=== PATIENT | female | born 1970 | race Two or more races ===

== ENCOUNTER → 2020-03-09 10:15 | Outpatient (REF) | payer OTHER, SELFPAY ==
--- NOTE | 2020-03-09 10:31 | ECG_ITS ---
Test Reason : I20.8 Blood Pressure : / mmHG Vent. Rate : 078 BPM Atrial Rate : 078 BPM P-R Int : 164 ms QRS Dur : 074 ms QT Int : 352 ms P-R-T Axes : 065 047 028 degrees QTc Int : 401 ms Normal sinus rhythm Normal ECG When compared with ECG of 12-APR-2019 17:12, No significant change was found Referred By: Alethea Kebede Electronically Signed By:MANUELITO SO
--- NOTE | 2020-03-09 10:46 | XR_ITS ---
EXAMINATION: CHEST X-RAY CLINICAL INFORMATION: Angina COMPARISON: Previous chest x-ray and chest CTA April 2009 TECHNIQUE: Two-view chest FINDINGS: The cardiac and mediastinal contours are normal. The lungs are clear. There is no pleural effusion or pneumothorax bony structures are unremarkable. XR/XR chest 2V IMPRESSION: Unremarkable exam EXAMINATION: Cervical spine x-ray CLINICAL INFORMATION: Neck pain COMPARISON: None. TECHNIQUE: 6 views of the cervical spine including swimmer's view and bilateral oblique views FINDINGS: Bone alignment is normal. No fracture or dislocation is seen. There is degenerative spondylosis at C4-C5. Disc spaces are normal. Neural foramen are patent. Prevertebral soft tissues are normal. IMPRESSION: Mild degenerative spondylosis at C4-C5.
--- NOTE | 2020-03-09 10:47 | XR_ITS ---
EXAMINATION: CHEST X-RAY CLINICAL INFORMATION: Angina COMPARISON: Previous chest x-ray and chest CTA April 2009 TECHNIQUE: Two-view chest FINDINGS: The cardiac and mediastinal contours are normal. The lungs are clear. There is no pleural effusion or pneumothorax bony structures are unremarkable. XR/XR cervical spine min 6V IMPRESSION: Unremarkable exam EXAMINATION: Cervical spine x-ray CLINICAL INFORMATION: Neck pain COMPARISON: None. TECHNIQUE: 6 views of the cervical spine including swimmer's view and bilateral oblique views FINDINGS: Bone alignment is normal. No fracture or dislocation is seen. There is degenerative spondylosis at C4-C5. Disc spaces are normal. Neural foramen are patent. Prevertebral soft tissues are normal. IMPRESSION: Mild degenerative spondylosis at C4-C5.
== END ==
LOC: HO.CARD 10:15
PROVIDERS: PCP Internal Medicine; Visit Provider Internal Medicine
DX: I20.8 Other forms of angina pectoris (principal); M54.2 Cervicalgia
CPT/HCPCS: 71046; 72052; 93005

== ENCOUNTER 2020-03-23 07:22 | Outpatient (REF) | payer OTHER, SELFPAY ==
[2020-03-23 08:19] LABS: Alanine Aminotransferase 20 U/L (0-31); Albumin Level 3.8 g/dL (3.5-5.0); Alkaline Phosphatase 73 U/L (39-117); Anion Gap 11 (12-20); Aspartate Amino Transferase 19 U/L (5-31); Bilirubin Total 0.4 mg/dL (0.0-1.0); Blood Urea Nitrogen 12 mg/dL (9-16); Calcium 8.8 mg/dL (8.4-10.2); Carbon Dioxide 25 mmol/L (22-29); Chloride 105 mmol/L (96-108); Cholesterol 146 mg/dL; Estimated Glomerular Filt Rate > 60; Glucose Fasting 96 mg/dL (60-99); HDL Cholesterol 43 mg/dL; LDL Cholesterol Calculated 89 mg/dl; Potassium 4.1 mmol/l (3.3-5.1); Sodium 137 mmol/L (135-145); Total Protein 7.2 g/dL (6.5-8.0); Triglycerides 71 mg/dL
== END 2020-03-23 07:23 | disposition home or self-care (01) ==
LOC: HO.LAB 07:22
PROVIDERS: Visit Provider Internal Medicine
DX: I10 Essential (primary) hypertension (principal)
CPT/HCPCS: 80053; 80061

== ENCOUNTER 2020-04-10 17:48 | Emergency (ER) | payer OTHER, SELFPAY ==
[2020-04-10 18:13] VITALS: BP 135/68; PULSE 59; RESP 18; TEMP 36.8; O2SAT 99; BMI 29.2
== END 2020-04-10 19:40 | disposition left against medical advice (07) ==
PROVIDERS: Emergency Provider Emergency Medicine; PCP Internal Medicine
DX: M25.569 Pain in unspecified knee (principal)
CPT/HCPCS: 99281; 99282

== ENCOUNTER 2020-05-25 08:26 | Outpatient (REF) | payer OTHER, SELFPAY ==
--- NOTE | ~2020-05-25 | XR_ITS ---
EXAMINATION: XR KNEE, LEFT CLINICAL INFORMATION: Pain COMPARISON: None TECHNIQUE: Four views of the left knee. FINDINGS: Bone alignment is normal. No fracture or dislocation is seen. Joint spaces are normal. There is a small osteophyte at the quadriceps tendon insertion to the patella. There is no joint effusion. XR/XR knee LT 4V IMPRESSION: Small patellar osteophyte otherwise unremarkable exam.
[2020-05-25 09:20] LABS: Basophils Percent Auto 0.4 % (0-2); Hemoglobin 8.1 g/dl (12.0-16.0); MANUAL DIFF FLAG SCAN; Mean Corpuscular Hemoglobin 20.1 pg (27.0-33.0); SCAN SMEAR FLAG 1
[2020-05-25 09:21] LABS: Eosinophils Absolute Auto 0.2 X10*3/uL (0.0-0.4); Eosinophils Percent Auto 1.8 % (0-4); Hematocrit 28.6 % (37-47); Imm Gran Abs Auto 0.04 X10*3/uL (0.00-0.03); Imm Gran Pct Auto 0.4 % (0.0-0.4); Lymphocytes Absolute Auto 1.7 X10*3/uL (1.2-4.9); Lymphocytes Percent Auto 17.8 % (20-40); Mean Corpuscular HGB Conc 28.3 g/dl (31.0-35.0); Mean Corpuscular Volume 71.1 fL (80-98); Monocytes Absolute Auto 0.7 X10*3/uL (0.1-1.2); Monocytes Percent Auto 7.9 % (2-11); Neutrophils Absolute Auto 6.7 X10*3/uL (2.0-8.3); Neutrophils Percent Auto 71.7 % (45-73); PLT CLUMP 1; Red Blood Count 4.02 X10*6/uL (4.20-5.50); Red Cell Distribution Width 17.1 % (11.0-16.0)
[2020-05-25 09:22] LABS: PLT ABN DIST 1
[2020-05-25 09:49] LABS: Platelet Count 192 X10*3/uL (160-400); SLIDE REVIEW VERIFIED; White Blood Count 9.4 X10*3/uL (4.8-10.8)
== END 2020-05-25 08:27 | disposition home or self-care (01) ==
LOC: HO.LAB 08:26
PROVIDERS: PCP Internal Medicine; Visit Provider Internal Medicine
DX: D64.9 Anemia, unspecified (principal); M25.562 Pain in left knee
CPT/HCPCS: 36415; 73564; 85025

== ENCOUNTER 2020-08-24 08:10 | Outpatient (REF) | payer OTHER, SELFPAY ==
--- NOTE | ~2020-08-24 | XR_ITS ---
EXAMINATION: XR LUMBAR SPINE AND DORSAL SPINE CLINICAL INFORMATION: Low back pain. Mid back pain. COMPARISON: None. TECHNIQUE: Lumbar spine 3 views. Dorsal spine 3 views. FINDINGS: LUMBAR SPINE: There is normal lumbar lordosis. The vertebral heights, alignment and disc heights are normal. There is no visible acute fracture, dislocation or lytic process seen. The paravertebral soft tissues are normal. DORSAL SPINE: There is normal thoracic kyphosis. The vertebral heights, alignment and disc heights are normal. There is no visible acute fracture, dislocation or subluxation seen. XR/XR lumbar spine 2-3V IMPRESSION: Unremarkable dorsal spine exam. Unremarkable lumbar spine exam.
--- NOTE | ~2020-08-24 | XR_ITS ---
EXAMINATION: XR LUMBAR SPINE AND DORSAL SPINE CLINICAL INFORMATION: Low back pain. Mid back pain. COMPARISON: None. TECHNIQUE: Lumbar spine 3 views. Dorsal spine 3 views. FINDINGS: LUMBAR SPINE: There is normal lumbar lordosis. The vertebral heights, alignment and disc heights are normal. There is no visible acute fracture, dislocation or lytic process seen. The paravertebral soft tissues are normal. DORSAL SPINE: There is normal thoracic kyphosis. The vertebral heights, alignment and disc heights are normal. There is no visible acute fracture, dislocation or subluxation seen. XR/XR thoracic spine 2V IMPRESSION: Unremarkable dorsal spine exam. Unremarkable lumbar spine exam.
--- NOTE | ~2020-08-24 | CT_ITS ---
EXAMINATION: CT CHEST WITHOUT CONTRAST CLINICAL INFORMATION: Follow-up pulmonary nodules COMPARISON: Previous chest CTA April 2019 TECHNIQUE: Multidetector volumetric CT imaging of the chest was done. Axial MIP volume rendering provided. Sagittal and coronal reformatted images were obtained. This CT examination was performed using dose optimization techniques as appropriate, variously including the following: *Automated exposure control *Adjustment of mA and/or kV according to patient size (this includes techniques or standardized protocols for targeted exams where dose is matched to indication/reason for exam; i.e. extremities or head) *Use of iterative reconstruction technique DLP: 254 mGy-cm FINDINGS: LUNGS: There are small bilateral pulmonary nodules that are stable. The largest measures 2 mm in the right upper lobe axial image 123 series 5. This is unchanged. The lungs are otherwise clear. MEDIASTINUM: The mediastinum is normal. PLEURA: There is no pleural effusion. No pleural mass or thickening. AXILLA: No lymphadenopathy. UPPER ABDOMEN: Unremarkable. OSSEOUS STRUCTURES: There is increased sclerosis of the left side of the manubrium axial image 11 series 3. Bony structures are otherwise. CT/CT chest wo con IMPRESSION: Stable small pulmonary nodules, largest measuring 2 mm in the right upper lobe. New areas of increased sclerosis in the left side of the manubrium. This may be degenerative in nature. There is concern for possible metastatic disease, further evaluation with bone scan would be recommended.
[2020-08-24 10:17] LABS: Hemoglobin 12.7 g/dl (12.0-16.0); SCAN SMEAR FLAG 1
[2020-08-24 10:19] LABS: Basophils Percent Auto 0.5 % (0-2); Eosinophils Absolute Auto 0.1 X10*3/uL (0.0-0.4); Eosinophils Percent Auto 2.1 % (0-4); Hematocrit 39.2 % (37-47); Imm Gran Abs Auto 0.01 X10*3/uL (0.00-0.03); Imm Gran Pct Auto 0.2 % (0.0-0.4); Lymphocytes Absolute Auto 1.4 X10*3/uL (1.2-4.9); Lymphocytes Percent Auto 22.5 % (20-40); Mean Corpuscular HGB Conc 32.4 g/dl (31.0-35.0); Mean Corpuscular Hemoglobin 28.6 pg (27.0-33.0); Mean Corpuscular Volume 88.3 fL (80-98); Monocytes Absolute Auto 0.5 X10*3/uL (0.1-1.2); Monocytes Percent Auto 7.9 % (2-11); Neutrophils Percent Auto 66.8 % (45-73); Platelet Count 140 X10*3/uL (160-400); Red Blood Count 4.44 X10*6/uL (4.20-5.50); Red Cell Distribution Width 15.4 % (11.0-16.0); White Blood Count 6.1 X10*3/uL (4.8-10.8)
[2020-08-24 10:38] LABS: Alanine Aminotransferase 38 U/L (0-31); Albumin Level 3.9 g/dL (3.5-5.0); Alkaline Phosphatase 68 U/L (39-117); Anion Gap 12 (12-20); Aspartate Amino Transferase 29 U/L (5-31); Bilirubin Total 0.6 mg/dL (0.0-1.0); Blood Urea Nitrogen 11 mg/dL (9-16); Carbon Dioxide 24 mmol/L (22-29); Chloride 108 mmol/L (96-108); Estimated Glomerular Filt Rate > 60; Glucose Fasting 100 mg/dL (60-99); Potassium 4.9 mmol/L (3.3-5.1); Sodium 139 mmol/L (135-145); Total Protein 7.2 g/dL (6.5-8.0)
[2020-08-24 10:44] LABS: PLT ABN DIST 1
== END 2020-08-24 08:11 | disposition home or self-care (01) ==
LOC: HO.CT 08:10
PROVIDERS: PCP Internal Medicine; Visit Provider Internal Medicine
DX: K21.9 Gastro-esophageal reflux disease without esophagitis (principal); D64.9 Anemia, unspecified; R91.8 Other nonspecific abnormal finding of lung field; Z86.16 Personal history of COVID-19; M54.6 Pain in thoracic spine; M54.5 Low back pain
CPT/HCPCS: 36415; 71250; 72070; 72100; 80053; 85025

== ENCOUNTER → 2020-09-21 09:32 | Outpatient (REF) | payer OTHER, SELFPAY ==
--- NOTE | ~2020-09-21 | NM_ITS ---
EXAMINATION: NM BONE SCAN OF THE WHOLE BODY CLINICAL INFORMATION: Neoplasm of unspecified site, abnormal chest CT, pulmonary nodule. Question possible metastatic disease. Patient states back pain and right-sided chest pain. COMPARISON: No previous bone scan is available for comparison. Radiographs of the lumbar and thoracic spine dated 08/24/2020 are available for comparison. CT scan of the chest dated 08/24/2020 is also available for comparison. TECHNIQUE: Multiple gamma scintillation camera images of the whole body were performed 2.75 hours following the intravenous administration of 30 mCi Tc-99m MDP. FINDINGS: In the head, no significant abnormalities are present. In the thoracic cage and upper extremities, there is minimally increased activity in the sternoclavicular joints bilaterally and the right acromioclavicular joint. Some residual radiopharmaceutical at injection site in the left antecubital fossa is noted. In the spine, no significant abnormalities are present. In the pelvis, no significant abnormalities are present. In the lower extremities, there is mildly increased activity in the patellae diffusely. There is a focus of moderately increased activity posteriorly in the right foot, likely at the insertion of the right Achilles tendon and due to an Achilles enthesopathy. Additional minimally increased activity is present in small foci posteriorly in the left foot and in the proximal right foot laterally. No other definite bony abnormalities are noted. The urinary bladder and faint visualization of both kidneys are noted. The CT scan of the chest dated 08/24/2020 shows a sclerotic lesion in the left side of the sternal manubrium abutting the sternoclavicular joint which shows associated degenerative changes. On this bone scan the sternoclavicular joint activity is bilaterally symmetrical with no more prominent activity in the left side of the sternal manubrium. NM/NM bone scan whole body IMPRESSION: 1. Mild bilaterally symmetrical abnormalities at the sternoclavicular joints are likely degenerative. There is no more prominent activity corresponding to the sclerosis in the region of the left side of the sternal manubrium, suggesting this is not an aggressive lesion. 2. A few additional mild nonspecific abnormalities are noted as described above and these are all likely arthritic or traumatic in etiology. None of these abnormalities is strongly suspicious for metastatic disease.
== END ==
LOC: HO.NUCMED 09:32
PROVIDERS: PCP Internal Medicine; Visit Provider Internal Medicine
DX: C79.9 Secondary malignant neoplasm of unspecified site (principal)
CPT/HCPCS: 78306; A9503

== ENCOUNTER 2020-10-05 12:36 | Emergency (ER) | payer OTHER, SELFPAY ==
--- NOTE | ~2020-10-05 | XR_ITS ---
EXAMINATION: XR CHEST CLINICAL INFORMATION: Cough COMPARISON: CT chest 08/24/2020 TECHNIQUE: Frontal view of the chest was obtained. FINDINGS: No significant abnormality is noted involving the heart, lungs, mediastinum, bony thorax or soft tissues. XR/XR chest 1V IMPRESSION: Unremarkable examination.
[2020-10-05 12:43] VITALS: BP 139/67; PULSE 85; RESP 18; TEMP 36.7; O2SAT 98; BMI 31.8
--- NOTE | 2020-10-05 14:22 | ED.GENADULT ---
HPI - General Adult General Chief complaint: General Medical Stated complaint: SORE THROAT Time Seen by Provider: 10/05/20 14:22 History of Present Illness HPI narrative: patient complains of runny nose productive cough and sore throat for 3 days, no difficulty swallowing no difficulty breathing no shortness of breath no calf pain or swelling no chest pain Related Data Home Medications Medication Instructions Recorded Confirmed escitalopram oxalate 5 mg tablet 5 mg PO DAILY 09/08/20 09/24/20 Previous Rx's Medication Instructions Recorded losartan 25 mg tablet 25 mg PO DAILY 90 Days #90 tab 04/24/20 pantoprazole 40 mg tablet,delayed 40 mg PO DAILY 90 Days #90 tab 05/11/20 release ferrous sulfate 325 mg (65 mg 325 mg PO BID 30 Days #60 tab 05/28/20 iron) tablet,delayed release clonazepam 0.5 mg tablet 0.5 mg PO DAILY PRN 30 Days #30 tab 06/10/20 zolpidem 10 mg tablet 10 mg PO BEDTIME PRN 30 Days #30 06/10/20 tab sumatriptan succinate 25 mg tablet 25 mg PO Q2-4H PRN 30 Days #9 tab 07/09/20 doxycycline hyclate 100 mg PO BID 7 Days #14 cap 10/05/20 Allergies Allergy/AdvReac Type Severity Reaction Status Date / Time No Known Allergies Allergy Verified 09/08/20 10:22 Review of Systems Review of Systems: Positive for cough runny nose and sore throat Negatives are no fever no chills no dizziness or weakness no fainting no feeling faint no headache no neck pain no chest pain no shortness of breath no abdominal pain no nausea vomiting or diarrhea no skin rash no dysuria Yes all other systems are reviewed and are negative PMFSH Past Medical History Source: nursing notes reviewed Medical History (Updated 10/06/20 @ 00:01 by Yogesh Patel) Anemia Anxiety Bony sclerosis Chest wall pain Essential hypertension GERD (gastroesophageal reflux disease) Insomnia Left knee pain Lumbar pain Metastasis Osteoarthritis of left knee Pulmonary nodules Thoracic spine pain Surgical History (Updated 09/24/20 @ 18:33 by Tyree Nelson MD) History of removal of cyst History of tubal ligation Family History Family History Father Hypertension Mother Hypertension Brother Myocardial infarction Daughter Depression Scoliosis Family history of thyroid problem Social History Social History Alcohol intake: never Patient Tobacco Use Status: Former Tobacco user Tobacco use type: Cigarette e-Cigarette/Vaping Use: Never Used Second Hand Smoke Exposure: No Physical Exam Vital Signs: Vital Signs: Last Vital Signs Temp 98.1 F 10/05/20 12:43 Pulse 85 10/05/20 12:43 Resp 18 10/05/20 12:43 BP 139/67 10/05/20 12:43 Pulse Ox 98 10/05/20 12:43 Body Mass Index 31.8 General appearance no acute distress The sinuses are nontender The pharynx is clear without redness swelling or exudate The neck is supple Chest clear to auscultation bilateral Heart no murmur Abdomen soft nontender Extremities no calf tenderness or swelling, no edema Skin no rash Course Course Course Narrative: Chest x-ray and COVID test were negative as was strep test Well-appearing patient is treated for bronchitis and discharged Medical Decision Making Lab Data Labs: Lab Results 10/05/20 10/05/20 Range/Units 14:46 14:47 COVID-19 (RUFUS) Negative (Negative) COVID-19 Clin Com See Note S. pyogenes GrpA MARION Negative (Negative) Discharge Plan Discharge Clinical Impression: Bronchitis Patient Disposition: Home, Self-Care Additional Instructions: testing for COVID, strep throat were negative Chest x-ray did not show any obvious pneumonia We are treating for bronchitis with antibiotics Zithromax Return any time for difficulty breathing, any worse condition any concerns Prescriptions: New doxycycline hyclate 100 mg capsule 100 mg PO BID 7 Days Qty: 14 RF: 0 No Action losartan 25 mg tablet 25 mg PO DAILY 90 Days Qty: 90 RF: 3 ferrous sulfate 325 mg (65 mg iron) tablet,delayed release (DR/EC) 325 mg PO BID 30 Days Qty: 60 RF: 6 clonazepam 0.5 mg tablet 0.5 mg PO DAILY PRN (Reason: anxiety) 30 Days Qty: 30 RF: 0 zolpidem 10 mg tablet 10 mg PO BEDTIME PRN (Reason: sleep) 30 Days Qty: 30 RF: 0 escitalopram oxalate 5 mg tablet 5 mg PO DAILY RF: 0 sumatriptan succinate 25 mg tablet 25 mg PO Q2-4H PRN (Reason: migraine headache) 30 Days Qty: 9 RF: 3 pantoprazole 40 mg tablet,delayed release (DR/EC) 40 mg PO DAILY 90 Days Qty: 90 RF: 3 Interventions: ED Discharge Assessment Last Done: 10/05/20 15:25 Discharge Date/Time: 10/05/20 15:25
[2020-10-05 15:09] LABS: COVID-19 Test Negative (Negative); IDNOW Serial# 9DD0AD1C
[2020-10-05 15:10] LABS: IDNOW Serial# 08D9AD1C; Strep A Nucleic Acid Negative (Negative)
== END 2020-10-05 15:25 | disposition home or self-care (01) ==
PROVIDERS: Physician Assistant Medical; Emergency Provider Emergency Medicine; PCP Internal Medicine
DX: J40 Bronchitis, not specified as acute or chronic (principal); I10 Essential (primary) hypertension; D64.9 Anemia, unspecified; Z79.899 Other long term (current) drug therapy; Z20.822 Contact with and (suspected) exposure to COVID-19
CPT/HCPCS: 36415; 71045; 87635; 87651; 99283

== ENCOUNTER 2020-10-19 13:36 | Outpatient (REF) | payer OTHER, SELFPAY ==
--- NOTE | ~2020-10-19 | MM_ITS ---
EXAMINATION: MM SCREENING DIGITAL BREAST TOMOSYNTHESIS, BILATERAL CLINICAL INFORMATION: Screening. Asymptomatic. The lifetime risk of breast cancer based on the Tyrer-Cuzick Model is 7%. COMPARISON: Mammography: 11/26/2018 (baseline) TECHNIQUE: Digital breast tomosynthesis is performed in both the craniocaudal and mediolateral oblique views along with computer-aided detection (CAD). Synthesized 2D images are generated from the tomosynthesis. FINDINGS: There are scattered areas of fibroglandular density (ACR BI-RADS breast composition Category b). There are no significant masses, abnormal calcifications, or other abnormalities. Parenchymal pattern is similar to prior baseline exam. The axilla and skin contours are unremarkable. No significant changes. MM/MM tomosynthesis screening BI IMPRESSION: No mammographic evidence of malignancy. ASSESSMENT: BI-RADS 1: Negative RECOMMENDATION: Routine annual mammography screening. This patient's information was entered into a reminder system with a target due date for their next mammogram.
== END 2020-10-19 13:37 | disposition home or self-care (01) ==
LOC: HO.MAMMO 13:36
PROVIDERS: Visit Provider Internal Medicine
DX: Z12.31 Encounter for screening mammogram for malignant neoplasm of breast (principal)
CPT/HCPCS: 77063; 77067

== ENCOUNTER 2020-11-02 07:19 | Outpatient (REF) | payer OTHER, SELFPAY ==
[2020-11-02 08:11] LABS: MANUAL DIFF FLAG NO
[2020-11-02 08:28] LABS: Basophils Absolute Auto 0.1 X10*3/uL (0.0-0.2); Basophils Percent Auto 0.7 % (0-2); Eosinophils Absolute Auto 0.2 X10*3/uL (0.0-0.4); Eosinophils Percent Auto 2.3 % (0-4); Hematocrit 36.6 % (37-47); Hemoglobin 12.2 g/dl (12.0-16.0); Imm Gran Abs Auto 0.03 X10*3/uL (0.00-0.03); Imm Gran Pct Auto 0.4 % (0.0-0.4); Lymphocytes Percent Auto 29.1 % (20-40); Mean Corpuscular HGB Conc 33.3 g/dl (31.0-35.0); Mean Corpuscular Hemoglobin 30.2 pg (27.0-33.0); Mean Corpuscular Volume 90.6 fL (80-98); Mean Platelet Volume 13.7 fL (9.4-12.3); Monocytes Absolute Auto 0.4 X10*3/uL (0.1-1.2); Monocytes Percent Auto 6.3 % (2-11); Neutrophils Absolute Auto 4.3 X10*3/uL (2.0-8.3); Neutrophils Percent Auto 61.2 % (45-73); Platelet Count 169 X10*3/uL (160-400); Red Blood Count 4.04 X10*6/uL (4.20-5.50); Red Cell Distribution Width 12.3 % (11.0-16.0)
== END 2020-11-02 07:20 | disposition home or self-care (01) ==
LOC: HO.LAB 07:19
PROVIDERS: PCP Internal Medicine; Visit Provider Internal Medicine
DX: Z13.89 Encounter for screening for other disorder (principal)
CPT/HCPCS: 36415; 85025

== ENCOUNTER 2021-03-20 07:48 | Outpatient (REF) | payer OTHER, SELFPAY ==
[2021-03-20 08:02] LABS: MANUAL DIFF FLAG NO
[2021-03-20 08:45] LABS: Basophils Percent Auto 0.5 % (0-2); Eosinophils Absolute Auto 0.1 X10*3/uL (0.0-0.4); Eosinophils Percent Auto 1.8 % (0-4); Hematocrit 36.5 % (37.0-47.0); Hemoglobin 11.9 g/dl (12.0-16.0); Imm Gran Abs Auto 0.02 X10*3/uL (0.00-0.03); Imm Gran Pct Auto 0.3 % (0.0-0.4); Lymphocytes Absolute Auto 1.9 X10*3/uL (1.2-4.9); Lymphocytes Percent Auto 25.9 % (20-40); Mean Corpuscular HGB Conc 32.6 g/dl (31.0-35.0); Monocytes Absolute Auto 0.6 X10*3/uL (0.1-1.2); Monocytes Percent Auto 8.7 % (2-11); Neutrophils Absolute Auto 4.6 x10*3/uL (2.0-8.3); Neutrophils Percent Auto 62.8 % (45-73); Platelet Count 144 X10*3/uL (160-400); Red Cell Distribution Width 12.5 % (11.0-16.0); White Blood Count 7.4 X10*3/uL (4.8-10.8)
[2021-03-20 08:55] LABS: Alanine Aminotransferase 35 U/L (0-31); Albumin Level 3.8 g/dL (3.5-5.0); Alkaline Phosphatase 65 U/L (39-117); Anion Gap 10 (12-20); Aspartate Amino Transferase 28 U/L (5-31); Bilirubin Total 0.5 mg/dL (0.0-1.0); Blood Urea Nitrogen 13 mg/dL (9-16); Calcium 9.2 mg/dL (8.4-10.2); Carbon Dioxide 26 mmol/L (22-29); Chloride 106 mmol/L (96-108); Cholesterol 167 mg/dL; Estimated Glomerular Filt Rate > 60; Glucose Fasting 86 mg/dL (60-99); HDL Cholesterol 41 mg/dL; Iron 51 mcg/dL (30-160); LDL Cholesterol Calculated 104 mg/dl; Percent Iron Saturation 13 % (15-50); Potassium 4.1 mmol/L (3.3-5.1); Sodium 138 mmol/L (135-145); Total Iron Binding Capacity 398 mcg/dL (228-428); Total Protein 7.1 g/dL (6.5-8.0); Triglycerides 113 mg/dL; Unsaturated Iron Binding 347 ug/dL
[2021-03-24 12:02] LABS: Vitamin D 25-OH, D2 <4 ng/mL; Vitamin D 25-OH, D3 12 ng/mL; Vitamin D 25-OH, Total 12 ng/mL (30-100)
== END 2021-03-20 07:49 | disposition home or self-care (01) ==
LOC: HO.LAB 07:48
PROVIDERS: PCP Internal Medicine; Visit Provider Internal Medicine
DX: D64.9 Anemia, unspecified (principal); E78.5 Hyperlipidemia, unspecified; I10 Essential (primary) hypertension; E55.9 Vitamin D deficiency, unspecified
CPT/HCPCS: 36415; 80053; 80061; 82306; 83540; 85025

== ENCOUNTER 2021-07-10 13:55 | Emergency (ER) | payer OTHER, SELFPAY ==
[2021-07-10 14:02] VITALS: BP 135/75; PULSE 86; RESP 16; TEMP 36.3; O2SAT 99; BMI 32.7
--- NOTE | 2021-07-10 14:07 | ED_ITS ---
HPI - Extremity Problem General Chief complaint: Extremity Injury, Upper Stated complaint: Elbow pain Time Seen by Provider: 07/10/21 14:07 Source: patient and certified court interpreter Mode of arrival: ambulatory Limitations: language barrier History of Present Illness HPI Narrative: Patient is a 50 year old female presenting to the emergency department today with right elbow pain. Patient states that for the last 3 weeks, her right elbow has been bothering her. 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 Patient denies any dizziness, lightheadedness, abdominal pain, nausea, vomiting, fever, chills, blurry vision, double vision, loss of vision, chest pain, difficulty breathing, shortness of breath, back pain, night sweats, pain with urination, increased urinary frequency, increased urinary urgency, blood in her urine or stool, syncope or a near syncopal episode, recent trauma or falls, bowel incontinence, bladder incontinence, bowel retention, bladder retention, or any other complaints at this time. MD Complaint: extremity pain Onset (ago): week(s) (3) Pain Consistency: constant Location: right Severity scale (1-10): 3 Quality: dull Radiation: none Relieving factors: immobilization Exacerbating factors: range of motion Associated symptoms: denies other symptoms Related Data Previous Rx's Medication Instructions Recorded clonazepam 0.5 mg tablet 0.5 mg PO DAILY PRN 30 Days #30 tab 06/10/20 sumatriptan succinate 25 mg tablet 25 mg PO Q2-4H PRN 30 Days #9 tab 11/02/20 famotidine 20 mg tablet 20 mg PO DAILY 90 Days #90 tab 03/23/21 ergocalciferol (vitamin D2) 1,250 1,250 mcg PO QWEEK 90 Days #13 cap 03/24/21 mcg (50,000 unit) capsule losartan 25 mg tablet 25 mg PO DAILY 90 Days #90 tab 04/16/21 pantoprazole 40 mg tablet,delayed 40 mg PO DAILY 90 Days #90 tab 05/06/21 release escitalopram oxalate 5 mg tablet 10 mg PO DAILY 90 Days #180 tab 06/08/21 albuterol sulfate 90 mcg/actuation 2 puff INHALATION Q6H PRN 30 Days 07/04/21 aerosol inhaler (ProAir HFA) #6.7 g zolpidem 10 mg tablet 10 mg PO BEDTIME PRN 30 Days #30 07/07/21 tab Allergies Allergy/AdvReac Type Severity Reaction Status Date / Time No Known Allergies Allergy Verified 03/23/21 13:14 Review of Systems Constitutional: Constitutional: Reports no additional constitutional comp laints, Denies chills, Denies fever(s) and Denies night sweats Eyes: Eyes: Reports no additional eye complaints, Denies blurry vision, Denies change in vision, Denies diplopia, Denies eye discharge, Denies loss of vision and Denies eye pain ENT: Denies dizziness Cardiovascular: Cardiovascular: Reports no additional cardiovascular complaints, Denies chest pain, Denies lightheadedness, Denies Loss of Consciousness and Denies dyspnea Respiratory: Respiratory: Reports no additional respiratory complaints and Denies dyspnea Gastrointestinal: Gastrointestinal: Reports no additional gastrointestinal complaints, Denies abdominal pain, Denies melena, Denies hematochezia, Denies change in bowel habits and Denies change in stool character Genitourinary: Genitourinary: Denies hematuria, Denies urinary frequency, Denies dysuria, Denies urinary incontinence, Denies urinary hesitancy and Denies urinary urgency Musculoskeletal: Musculoskeletal: Reports no additional musculoskeletal complaints, Denies numbness and Denies tingling Comments: right elbow pain Neurologic: Denies dizziness, Denies loss of vision, Denies numbness and Denies tingling Psychiatric: Psychiatric: Reports no additional psychiatric complaints Endocrine: Endocrine: Reports no additional endocrine complaints Hematologic/Lymphatic: Hematologic/Lymphatic: Reports no additional hematologic/lymphatic complaints Allergic/Immunologic: Allergic/Immunologic: Reports no additional allergic/immunologic complaints [facility] Past Medical History Attestation statement: The following information was validated with the patient. Source: old records reviewed Medical History Anemia Anxiety Bony sclerosis Chest wall pain Essential hypertension GERD (gastroesophageal reflux disease) Hypovitaminosis D Insomnia Iron deficiency anemia due to chronic blood loss Left knee pain Lumbar pain Metastasis Migraines Osteoarthritis of left knee Pulmonary nodules Thoracic spine pain Transaminitis Surgical History History of removal of cyst History of tubal ligation Family History Family History Father Hypertension Mother Hypertension Brother Myocardial infarction Daughter Depression Scoliosis Family history of thyroid problem Social History Social History Housing: Apartment Alcohol intake: current Alcohol intake frequency: holidays/special occasions only Alcohol type: hard liquor Patient Tobacco Use Status: Former Tobacco user Tobacco use type: Cigarette e-Cigarette/Vaping Use: Never Used Second Hand Smoke Exposure: No Advance Directives: No Advance Directives Information Provided: No Patient : No service: No Current occupational status: unemployed Physical Exam Vital Signs: Vital Signs: Last Vital Signs Temp 97.3 F 07/10/21 14:02 Pulse 86 07/10/21 14:02 Resp 16 07/10/21 14:02 BP 135/75 07/10/21 14:02 Pulse Ox 99 07/10/21 14:02 BMI result Body Mass Index 32.7 Const: General: cooperative, no acute distress, alert and awake Nutritional Appearance: well nourished Orientation/consciousness: patient oriented x3 Limitations: no limitations HEENT: Head: Yes normal to inspection and Yes atraumatic Ears: hearing grossly normal bilaterally and external ears normal General nose exam: Normal external nose present, no nasal discharge noted and no epistaxis Face and sinus: Yes normal facial exam, No abrasion and No laceration Mouth: Normal oral and palatal mucosa present, no drooling and no muffled voice Eyes: General: appearance normal, both eyes and all related structures Periorbital: periorbital findings normal Eyelids: Yes eyelids normal Conjunctivae: conjunctivae normal Pupils: Equal, round and reactive pupils present EOM: EOMs intact bilaterally Neck: Neck: Yes normal visual inspection, Yes full ROM and Yes no lymphadenopathy Chest: Chest palpation & inspection: normal inspection of the chest Resp: Effort & Inspection: normal respiratory effort and able to speak in complete sentences Auscultation: clear to auscultation bilaterally Cardio: Rate: regular rate Rhythm: regular rhythm GI: Inspection: Yes normal to inspection Neuro: General: patient oriented x3 and moves all extremities Cranial nerves: Yes Equal, round and reactive pupils present Cognition (Neuro): normal cognition Motor exam (neuro): 5/5 motor strength present throughout Sensory Exam: Normal double simultaneous stimulation for sensation Coordina tion: [id number] test normal Extrem: Other: pain with ROM of the right elbow General: Yes normal to inspection, Yes full ROM and Yes capillary refill normal Psych: Appearance: grossly normal Mental Status: mental status grossly normal Affect: normal affect Attitude: cooperative Thought process: Normal thought process present Thought content: Normal thought content present Insight: Good insight present (Psych) MDM - Extremity (Nontraumatic) MDM Narrative Medical decision making narrative: Patient is a 50 year old female presenting to the emergency department today with right elbow pain. Patient's physical exam showed tenderness with ROM of the right elbow but was otherwise unremarkable. I explained my physical exam findings to the patient. I answered all questions asked by the patient. I explained to the patient that she is likely experiencing a tendonitis of the elbow. Patient's right elbow was placed in a sling, without incident. Patient's PMS was intact prior to and after sling placement. I stressed the importance of the patient taking her medication as prescribed. I stressed the importance of the patient following up with her primary care provider and an orthopedic provider. I stressed the importance of the patient returning to the emergency department immediately if her symptoms were to worsen or if she were to develop any dizziness, shortness of breath, difficulty breathing, chest pain, blurry vision, loss of vision, nausea, vomiting, abdominal pain, fever, chills, back pain, or any other complaints. Patient verbalized agreement and understanding with this treatment plan and discharge. Differential Diagnosis Differential diagnosis: Unlikely gout (burisits, tendonitis) Medical Records Attestation: I reviewed the patient's medical records. Discharge Plan Discharge Clinical Impression: Right tennis elbow Patient Disposition: Home, Self-Care Instructions: Tennis Elbow (ED) Additional Instructions: Call to schedule a follow up appointment with an Orthopedic provider. Follow up with your primary care provider. Return to the emergency department immediately if your symptoms worsen or if you develop any dizziness, shortness of breath, difficulty breathing, chest pain, blurry vision, loss of vision, nausea, vomiting, abdominal pain, fever, chills, back pain, or any other complaints. Prescriptions: No Action clonazepam 0.5 mg tablet 0.5 mg PO DAILY PRN (Reason: anxiety) 30 Days Qty: 30 0RF sumatriptan succinate 25 mg tablet 25 mg PO Q2-4H PRN (Reason: migraine headache) 30 Days Qty: 9 3RF Rx Instructions: do not exceed 8 doses per 24 hrs ergocalciferol (vitamin D2) 1,250 mcg (50,000 unit) capsule 1,250 mcg PO QWEEK 90 Days Qty: 13 2RF losartan 25 mg tablet 25 mg PO DAILY 90 Days Qty: 90 3RF pantoprazole 40 mg tablet,delayed release (DR/EC) 40 mg PO DAILY 90 Days Qty: 90 3RF escitalopram oxalate 5 mg tablet 10 mg PO DAILY 90 Days Qty: 180 3RF albuterol sulfate [ProAir HFA] 90 mcg/actuation HFA aerosol inhaler 2 puff inhalation Q6H PRN (Reason: shortness of breath or wheezing) 30 Days Qty: 6.7 0RF zolpidem 10 mg tablet 10 mg PO BEDTIME PRN (Reason: sleep) 30 Days Qty: 30 0RF famotidine 20 mg tablet 20 mg PO DAILY 90 Days Qty: 90 1RF Referrals: Enoch Bond MD [Physician] - (Follow up with ANY of the orthopedic providers at this number. ) Alethea Corona MD [Primary Care Provider] - Interventions: ED Discharge Assessment Last Done: 07/10/21 14:32 Discharge Date/Time: 07/10/21 14:35 Print Language: Belarusian
== END 2021-07-10 14:35 | disposition home or self-care (01) ==
PROVIDERS: Emergency Provider Emergency Medicine; PCP Internal Medicine
DX: M77.11 Lateral epicondylitis, right elbow (principal); I10 Essential (primary) hypertension; Z87.891 Personal history of nicotine dependence
CPT/HCPCS: 99283

== ENCOUNTER 2021-07-12 08:50 | Outpatient (REF) | payer OTHER, SELFPAY ==
[2021-07-12 09:10] LABS: MANUAL DIFF FLAG NO
[2021-07-12 10:14] LABS: Alanine Aminotransferase 25 U/L (0-31); Albumin Level 3.8 g/dL (3.5-5.0); Alkaline Phosphatase 62 U/L (39-117); Aspartate Amino Transferase 21 U/L (5-31); Bilirubin Direct 0.2 mg/dL (0.0-0.5); Bilirubin Total 0.3 mg/dL (0.0-1.0); Iron 41 mcg/dL (30-160); Percent Iron Saturation 10 % (15-50); Total Iron Binding Capacity 426 mcg/dL (228-428); Total Protein 7.3 g/dL (6.5-8.0); Unsaturated Iron Binding 385 ug/dL
[2021-07-12 11:04] LABS: Basophils Absolute Auto 0.1 X10*3/uL (0.0-0.2); Basophils Percent Auto 0.7 % (0-2); Eosinophils Absolute Auto 0.1 X10*3/uL (0.0-0.4); Eosinophils Percent Auto 1.7 % (0-4); Hematocrit 34.9 % (37.0-47.0); Hemoglobin 10.9 g/dl (12.0-16.0); Imm Gran Abs Auto 0.02 X10*3/uL (0.00-0.03); Imm Gran Pct Auto 0.2 % (0.0-0.4); Lymphocytes Absolute Auto 1.5 X10*3/uL (1.2-4.9); Lymphocytes Percent Auto 18.2 % (20-40); Mean Corpuscular HGB Conc 31.2 g/dl (31.0-35.0); Mean Corpuscular Hemoglobin 26.5 pg (27.0-33.0); Mean Corpuscular Volume 84.7 fL (80.0-98.0); Mean Platelet Volume 14.6 fL (9.4-12.3); Monocytes Absolute Auto 0.5 X10*3/uL (0.1-1.2); Monocytes Percent Auto 5.8 % (2-11); Neutrophils Percent Auto 73.4 % (45-73); Platelet Count 150 X10*3/uL (160-400); Red Blood Count 4.12 X10*6/uL (4.20-5.50); Red Cell Distribution Width 14.3 % (11.0-16.0); White Blood Count 8.1 X10*3/uL (4.8-10.8)
== END 2021-07-12 08:51 | disposition home or self-care (01) ==
LOC: HO.LAB 08:50
PROVIDERS: PCP Internal Medicine; Visit Provider Internal Medicine
DX: D64.9 Anemia, unspecified (principal); R74.01 Elevation of levels of liver transaminase levels
CPT/HCPCS: 36415; 80076; 83540; 85025

== ENCOUNTER 2021-07-27 07:22 | Outpatient (REF) | payer OTHER, SELFPAY ==
--- NOTE | ~2021-07-27 | XR_ITS ---
EXAMINATION: XR ELBOW, RIGHT CLINICAL INFORMATION: Pain unspecified elbow COMPARISON: None TECHNIQUE: AP, lateral, and oblique views of the right elbow. FINDINGS: There is a tiny calcific density at the lateral epicondyle, may represent a small enthesophyte. The bones are intact and unremarkable. There is question minimal soft tissue edema at the triceps tendon insertion. Soft tissues are otherwise unremarkable.. No fracture or joint effusion. Alignment is anatomic. Joint spaces are maintained. XR/XR elbow RT min 3V IMPRESSION: Questionable soft tissue edema at the triceps tendon insertion. Would correlate for tendinitis.
== END 2021-07-27 07:23 | disposition home or self-care (01) ==
LOC: HO.HOSX 07:22
PROVIDERS: Visit Provider Physician Assistant
DX: M77.11 Lateral epicondylitis, right elbow (principal)
CPT/HCPCS: 73080; 99202

== ENCOUNTER 2021-10-20 07:53 | Outpatient (REF) | payer OTHER, SELFPAY ==
[2021-10-20 08:06] LABS: MANUAL DIFF FLAG NO
[2021-10-20 08:56] LABS: Basophils Percent Auto 0.4 % (0-2); Eosinophils Absolute Auto 0.2 X10*3/uL (0.0-0.4); Eosinophils Percent Auto 1.8 % (0-4); Hematocrit 32.6 % (37.0-47.0); Hemoglobin 10.1 g/dl (12.0-16.0); Imm Gran Abs Auto 0.03 X10*3/uL (0.00-0.03); Imm Gran Pct Auto 0.4 % (0.0-0.4); Lymphocytes Absolute Auto 1.7 X10*3/uL (1.2-4.9); Lymphocytes Percent Auto 20.7 % (20-40); Mean Corpuscular Hemoglobin 25.2 pg (27.0-33.0); Mean Corpuscular Volume 81.3 fL (80.0-98.0); Monocytes Absolute Auto 0.6 X10*3/uL (0.1-1.2); Monocytes Percent Auto 7.3 % (2-11); Neutrophils Absolute Auto 5.7 x10*3/uL (2.0-8.3); Neutrophils Percent Auto 69.4 % (45-73); Platelet Count 141 X10*3/uL (160-400); Red Blood Count 4.01 X10*6/uL (4.20-5.50); White Blood Count 8.3 X10*3/uL (4.8-10.8)
[2021-10-20 09:36] LABS: Alanine Aminotransferase 30 U/L (0-31); Albumin Level 3.9 g/dL (3.5-5.0); Alkaline Phosphatase 68 U/L (39-117); Anion Gap 12 (12-20); Aspartate Amino Transferase 24 U/L (5-31); Bilirubin Total 0.5 mg/dL (0.0-1.0); Blood Urea Nitrogen 11 mg/dL (9-16); Calcium 9.2 mg/dL (8.4-10.2); Carbon Dioxide 25 mmol/L (22-29); Chloride 103 mmol/L (96-108); Cholesterol 152 mg/dL; Estimated Glomerular Filt Rate > 60; Glucose Fasting 96 mg/dL (60-99); HDL Cholesterol 41 mg/dL; Iron 41 mcg/dL (30-160); LDL Cholesterol Calculated 93 mg/dl; Percent Iron Saturation 9 % (15-50); Sodium 136 mmol/L (135-145); Total Iron Binding Capacity 439 mcg/dL (228-428); Total Protein 7.2 g/dL (6.5-8.0); Triglycerides 94 mg/dL; Unsaturated Iron Binding 398 ug/dL
[2021-10-20 09:44] LABS: Vitamin D 25-OH Total 19.9 ng/mL (>30)
== END 2021-10-20 07:54 | disposition home or self-care (01) ==
LOC: HO.LAB 07:53
PROVIDERS: PCP Internal Medicine; Visit Provider Internal Medicine
DX: G43.009 Migraine without aura, not intractable, without status migrainosus (principal); D64.9 Anemia, unspecified; E78.5 Hyperlipidemia, unspecified; E55.9 Vitamin D deficiency, unspecified
CPT/HCPCS: 36415; 80053; 80061; 82306; 83540; 85025

== ENCOUNTER 2021-11-08 09:18 | Outpatient (REF) | payer OTHER, SELFPAY ==
--- NOTE | ~2021-11-08 | XR_ITS ---
EXAMINATION: XR CHEST CLINICAL INFORMATION: Cough COMPARISON: Previous chest x-ray October 2020 TECHNIQUE: 2 views of the chest were obtained. FINDINGS: No significant abnormality is noted involving the heart, lungs, mediastinum, bony thorax or soft tissues. XR/XR chest 2V IMPRESSION: Unremarkable examination.
--- NOTE | ~2021-11-08 | XR_ITS ---
EXAMINATION: XR ELBOW, LEFT CLINICAL INFORMATION: Pain COMPARISON: None TECHNIQUE: AP, lateral, and oblique views of the left elbow. FINDINGS: The bones and soft tissues are normal. No fracture or joint effusion. Alignment is anatomic. Joint spaces are maintained. XR/XR elbow LT 2V IMPRESSION: Normal left elbow.
== END 2021-11-08 09:19 | disposition home or self-care (01) ==
LOC: HO.XRAY 09:18
PROVIDERS: PCP Internal Medicine; Visit Provider Internal Medicine
DX: R05.8 Other specified cough (principal); M25.522 Pain in left elbow
CPT/HCPCS: 71046; 73070

== ENCOUNTER 2022-03-07 14:47 | Outpatient (REF) | payer OTHER, SELFPAY ==
[2022-03-07 15:48] LABS: Eosinophils Absolute Auto 0.1 X10*3/uL (0.0-0.4); Eosinophils Percent Auto 1.3 % (0-4); Hematocrit 30.5 % (37.0-47.0); SCAN SMEAR FLAG 1
[2022-03-07 15:50] LABS: Basophils Absolute Auto 0.1 X10*3/uL (0.0-0.2); Hemoglobin 8.9 g/dl (12.0-16.0); Imm Gran Abs Auto 0.02 X10*3/uL (0.00-0.03); Imm Gran Pct Auto 0.3 % (0.0-0.4); Lymphocytes Absolute Auto 1.3 X10*3/uL (1.2-4.9); Lymphocytes Percent Auto 21.7 % (20-40); MANUAL DIFF FLAG SCAN; Mean Corpuscular HGB Conc 29.2 g/dl (31.0-35.0); Mean Corpuscular Hemoglobin 22.3 pg (27.0-33.0); Mean Corpuscular Volume 76.3 fL (80.0-98.0); Monocytes Absolute Auto 0.5 X10*3/uL (0.1-1.2); Monocytes Percent Auto 7.8 % (2-11); Neutrophils Absolute Auto 4.2 x10*3/uL (2.0-8.3); Neutrophils Percent Auto 67.9 % (45-73); Platelet Count 151 X10*3/uL (160-400); Red Cell Distribution Width 16.5 % (11.0-16.0); White Blood Count 6.1 X10*3/uL (4.8-10.8)
[2022-03-07 16:09] LABS: PLT ABN DIST 1; SLIDE REVIEW VERIFIED
[2022-03-07 16:11] LABS: Iron 26 mcg/dL (30-160); Percent Iron Saturation 5 % (15-50); Total Iron Binding Capacity 479 mcg/dL (228-428); Unsaturated Iron Binding 453 ug/dL
[2022-03-07 16:31] LABS: Vitamin D 25-OH Total 30.1 ng/mL (>30)
== END 2022-03-07 14:48 | disposition home or self-care (01) ==
LOC: HO.LAB 14:47
PROVIDERS: PCP Internal Medicine; Visit Provider Internal Medicine
DX: D64.9 Anemia, unspecified (principal); E55.9 Vitamin D deficiency, unspecified
CPT/HCPCS: 36415; 82306; 83540; 85025

== ENCOUNTER 2022-06-18 07:53 | Outpatient (REF) | payer OTHER, SELFPAY ==
[2022-06-18 08:15] LABS: MANUAL DIFF FLAG NO
[2022-06-18 08:49] LABS: Basophils Percent Auto 0.5 % (0-2); Eosinophils Absolute Auto 0.1 X10*3/uL (0.0-0.4); Eosinophils Percent Auto 1.7 % (0-4); Hematocrit 31.6 % (37.0-47.0); Hemoglobin 9.3 g/dl (12.0-16.0); Imm Gran Abs Auto 0.03 X10*3/uL (0.00-0.03); Imm Gran Pct Auto 0.4 % (0.0-0.4); Lymphocytes Absolute Auto 1.4 X10*3/uL (1.2-4.9); Lymphocytes Percent Auto 18.5 % (20-40); Mean Corpuscular HGB Conc 29.4 g/dl (31.0-35.0); Mean Corpuscular Hemoglobin 21.9 pg (27.0-33.0); Mean Corpuscular Volume 74.5 fL (80.0-98.0); Monocytes Absolute Auto 0.7 X10*3/uL (0.1-1.2); Monocytes Percent Auto 9.2 % (2-11); Neutrophils Absolute Auto 5.2 x10*3/uL (2.0-8.3); Neutrophils Percent Auto 69.7 % (45-73); Platelet Count 138 X10*3/uL (160-400); Red Blood Count 4.24 X10*6/uL (4.20-5.50); Red Cell Distribution Width 16.3 % (11.0-16.0); White Blood Count 7.5 X10*3/uL (4.8-10.8)
[2022-06-18 09:38] LABS: Alanine Aminotransferase 23 U/L (0-31); Albumin Level 3.7 g/dL (3.5-5.0); Alkaline Phosphatase 74 U/L (39-117); Anion Gap 12 (12-20); Aspartate Amino Transferase 21 U/L (5-31); Bilirubin Total 0.4 mg/dL (0.0-1.0); Blood Urea Nitrogen 9 mg/dL (9-16); Calcium 8.9 mg/dL (8.4-10.2); Carbon Dioxide 24 mmol/L (22-29); Chloride 104 mmol/L (96-108); Cholesterol 177 mg/dL; Estimated Glomerular Filt Rate > 60; Glucose Fasting 91 mg/dL (60-99); HDL Cholesterol 59 mg/dL; Iron 20 mcg/dL (30-160); LDL Cholesterol Calculated 101 mg/dl; Percent Iron Saturation 5 % (15-50); Potassium 4.2 mmol/L (3.3-5.1); Sodium 136 mmol/L (135-145); Total Iron Binding Capacity 399 mcg/dL (228-428); Total Protein 7.1 g/dL (6.5-8.0); Triglycerides 89 mg/dL; Unsaturated Iron Binding 379 ug/dL
[2022-06-18 09:52] LABS: Folate 14.6 ng/mL (> or = 4.0); Vitamin B12 312 pg/mL (200-900); Vitamin D 25-OH Total 26.3 ng/mL (>30)
== END 2022-06-18 07:54 | disposition home or self-care (01) ==
LOC: HO.LAB 07:53
PROVIDERS: PCP Internal Medicine; Visit Provider Internal Medicine
DX: D64.9 Anemia, unspecified (principal); E78.5 Hyperlipidemia, unspecified; E53.8 Deficiency of other specified B group vitamins; E55.9 Vitamin D deficiency, unspecified; I10 Essential (primary) hypertension
CPT/HCPCS: 36415; 80053; 80061; 82306; 82607; 82746; 83540; 85025

== ENCOUNTER 2022-09-09 10:49 | Outpatient (REF) | payer OTHER, SELFPAY ==
--- NOTE | ~2022-09-09 | MM_ITS ---
EXAMINATION: MM SCREENING DIGITAL BREAST TOMOSYNTHESIS, BILATERAL CLINICAL INFORMATION: Screening. Asymptomatic. The lifetime risk of breast cancer based on the Tyrer-Cuzick Model is 7%. COMPARISON: Mammography: 10/19/2020, 11/26/2018 (baseline) TECHNIQUE: Digital breast tomosynthesis is performed in both the craniocaudal and mediolateral oblique views along with computer-aided detection (CAD). Synthesized 2D images are generated from the tomosynthesis. FINDINGS: There are scattered areas of fibroglandular density (ACR BI-RADS breast composition Category b). There are no significant masses, abnormal calcifications, or other abnormalities. Parenchymal pattern is similar to prior studies. There is no developing density or architectural abnormality. The axilla and skin contours are unremarkable. No significant changes. MM/MM tomosynthesis screening BI IMPRESSION: No mammographic evidence of malignancy. ASSESSMENT: BI-RADS 1: Negative RECOMMENDATION: Routine annual mammography screening. This patient's information was entered into a reminder system with a target due date for their next mammogram.
== END 2022-09-09 10:50 | disposition home or self-care (01) ==
LOC: HO.MAMMO 10:49
PROVIDERS: PCP Internal Medicine; Visit Provider Internal Medicine
DX: Z12.31 Encounter for screening mammogram for malignant neoplasm of breast (principal)
CPT/HCPCS: 77063; 77067

== ENCOUNTER 2022-10-29 18:50 | Emergency (ER) | payer OTHER, SELFPAY ==
--- NOTE | 2022-10-29 18:55 | ED_ITS ---
HPI - General Adult General Chief complaint: Eye Problems Stated complaint: left eye red Related Data Previous Rx's Medication Instructions Recorded clonazepam 0.5 mg tablet 0.5 mg PO DAILY PRN anxiety 30 06/10/20 days #30 tabs escitalopram oxalate 5 mg tablet 10 mg PO DAILY 90 days #180 tabs 06/08/21 zolpidem 10 mg tablet 10 mg PO BEDTIME PRN sleep 30 days 07/07/21 #30 tabs losartan 25 mg tablet 25 mg PO DAILY 90 days #90 tabs 01/25/22 pantoprazole 40 mg tablet,delayed 40 mg PO DAILY 90 days #90 tabs 02/11/22 release albuterol sulfate 90 mcg/actuation 2 puff inhalation Q6H PRN 05/10/22 aerosol inhaler (ProAir HFA) shortness of breath or wheezing 30 days #6.7 grams ferrous sulfate 325 mg (65 mg 325 mg PO BID 90 days #180 tabs 06/26/22 iron) tablet famotidine 20 mg tablet 20 mg PO DAILY 90 days #90 tabs 07/13/22 sumatriptan succinate 25 mg tablet 25 mg PO Q2-4H PRN migraine 08/13/22 headache 30 days #9 tabs ibuprofen 800 mg tablet 800 mg PO Q8H PRN pain 30 days #90 10/11/22 tabs meloxicam 15 mg tablet 15 mg PO .qd 30 days #30 tabs 10/11/22 cholecalciferol (vitamin D3) 50 50 mcg PO DAILY 90 days #90 caps 10/21/22 mcg (2,000 unit) capsule Allergies Allergy/AdvReac Type Severity Reaction Status Date / Time No Known Allergies Allergy Verified 10/29/22 19:08 [facility] Past Medical History Medical History Anemia Anxiety Bony sclerosis Chest wall pain Elbow pain Essential hypertension GERD (gastroesophageal reflux disease) Hypovitaminosis D Insomnia Iron deficiency anemia due to chronic blood loss Left knee pain Lumbar pain Metastasis Migraines Osteoarthritis of left knee Pulmonary nodules Thoracic spine pain Transaminitis Surgical History History of removal of cyst History of tubal ligation Family History Family History Father Hypertension Mother Hypertension Brother Myocardial infarction Daughter Depression Scoliosis Family history of thyroid problem Social History Social History Housing: Apartment Alcohol intake: former Patient Tobacco Use Status: Former Tobacco user Tobacco use type: Cigarette e-Cigarette/Vaping Use: Never Used Second Hand Smoke Exposure: No Advance Directives: No Advance Directives Information Provided: No service: No Current occupational status: unemployed Cognitive needs: No Hearing needs: No Vision needs: Yes Physical Exam ED Vital Signs: BMI result Body Mass Index 31.0 Course Course Course Narrative: This is a rapid medical exam: Additional HPI, ROS, PE not included below will be deferred to primary provider. Patient is a 51-year-old [place]er-speaking female with history of HTN presenting to the emergency department with complaint of foreign body sensation and redness to right eye since waking this morning. Denies any vision changes. Subconjunctival hemorrhage to right eye, IOPs 3 OD, 15 OS. Plan: Visual acuity Discharge Plan Discharge Clinical Impression: Acute right eye pain Patient Disposition: Elopement Prescriptions: No Action clonazepam 0.5 mg tablet 0.5 mg PO DAILY PRN (Reason: anxiety) 30 Days Qty: 30 0RF escitalopram oxalate 5 mg tablet 10 mg PO DAILY 90 Days Qty: 180 3RF zolpidem 10 mg tablet 10 mg PO BEDTIME PRN (Reason: sleep) 30 Days Qty: 30 0RF losartan 25 mg tablet 25 mg PO DAILY 90 Days Qty: 90 3RF pantoprazole 40 mg tablet,delayed release (DR/EC) 40 mg PO DAILY 90 Days Qty: 90 3RF albuterol sulfate [ProAir HFA] 90 mcg/actuation HFA aerosol inhaler 2 puff inhalation Q6H PRN (Reason: shortness of breath or wheezing) 30 Days Qty: 6.7 0RF ferrous sulfate 325 mg (65 mg iron) tablet 325 mg PO BID 90 Days Qty: 180 1RF famotidine 20 mg tablet 20 mg PO DAILY 90 Days Qty: 90 1RF sumatriptan succinate 25 mg tablet 25 mg PO Q2-4H PRN (Reason: migraine headache) 30 Days Qty: 9 3RF Rx Instructions: do not exceed 8 doses per 24 hrs meloxicam 15 mg tablet 15 mg PO .qd 30 Days Qty: 30 0RF ibuprofen 800 mg tablet 800 mg PO Q8H PRN (Reason: pain) 30 Days Qty: 90 0RF cholecalciferol (vitamin D3) 50 mcg (2,000 unit) capsule 50 mcg PO DAILY 90 Days Qty: 90 1RF Interventions: ZANDER Worksheet Last Done: 10/29/22 21:31 Discharge Date/Time: 10/29/22 21:32
[2022-10-29 19:03] VITALS: BP 144/80; PULSE 89; RESP 16; TEMP 36.6; O2SAT 97; BMI 31.0
--- NOTE | 2022-10-29 21:28 | PC.NURSE ---
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 explained via costing analyst I do not know how quickly an MD would be in to see her. she sts that she wants to go home, and exited through exam room door. marked as elopement
== END 2022-10-29 21:32 | disposition left against medical advice (07) ==
PROVIDERS: Emergency Provider Emergency Medicine; PCP Internal Medicine
DX: H57.12 Ocular pain, left eye (principal); H11.31 Conjunctival hemorrhage, right eye; I10 Essential (primary) hypertension; Z87.891 Personal history of nicotine dependence
CPT/HCPCS: 99283

== ENCOUNTER 2022-11-21 13:26 | Outpatient (AMB) | payer OTHER, SELFPAY ==
--- NOTE | 2022-11-21 13:27 | A.OFFPC_ITS ---
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: No Accompanied by: Self / Same As Patient Allergies No Known Allergies Allergy (Verified 11/21/22 13:57) Medication List - Last Reconciled 11/21/22 by Alethea Kebede MD albuterol sulfate 90 mcg/actuation (ProAir HFA) 2 puffs inhalation Q6H PRN 30 days cholecalciferol (vitamin D3) 50 mcg PO DAILY 90 days clonazepam 0.5 mg PO DAILY PRN 30 days escitalopram oxalate 10 mg (2 x 5 mg) PO DAILY 90 days famotidine 20 mg PO DAILY 90 days ferrous sulfate 325 mg PO BID 90 days ibuprofen 800 mg PO Q8H PRN 30 days losartan 25 mg PO DAILY 90 days meloxicam 15 mg PO .qd 30 days methotrexate sodium 2.5 mg PO QWEEK pantoprazole 40 mg PO DAILY 90 days sumatriptan succinate 25 mg PO Q2-4H PRN 30 days zolpidem 10 mg PO BEDTIME PRN 30 days Tobacco use date assessed: 06/20/22 Dental Screening Dental Screen Date: 11/21/22 Did you have a dental visit in the last 12 months?: No Did you have a dental problem in the last 6 months where you did not have access to dental care?: No Was dental information given to patient?: Patient has dentist HPI HPI Comments History of Present Illness Details This is a 51-year-old female with mild major depression that comes for her physical exam. Depression stable and is follow by Psychiatry. Last mammogram was September 2022 and was normal. Has never had a colonoscopy and prefer Cologuard. Last Pap smear was 2018 and was normal with HPV negative. Next Pap smear should be 2023. Some shortness of breath and has a cough that has been present for over 2 weeks. FORMERLY [facility], [facility]1983 Medical History Anemia Anxiety Bony sclerosis Chest wall pain Elbow pain Essential hypertension GERD (gastroesophageal reflux disease) Hypovitaminosis D Insomnia Iron deficiency anemia due to chronic blood loss Left knee pain Lumbar pain Metastasis Migraines Osteoarthritis of left knee Pulmonary nodules Thoracic spine pain Transaminitis Surgical History History of removal of cyst History of tubal ligation Family History Father Hypertension Mother Hypertension Brother Myocardial infarction Daughter Depression Scoliosis Family history of thyroid problem Social History Housing: Apartment Alcohol intake: former Patient Tobacco Use Status: Former Tobacco user Tobacco use type: Cigarette e-Cigarette/Vaping Use: Never Used Second Hand Smoke Exposure: No service: No Current occupational status: unemployed Cognitive needs: No Hearing needs: No Vision needs: Yes Questionnaire Thrive Questionnaire Date Thrive assessed: 06/20/22 CHACHA-7 AMB Questionnaire CHACHA-7 Date CHACHA - 7 assessed: 06/20/22 Source: Developed by Drs. Dejuan Ruiz, Adri Martin, Emanuel Dawkins and colleagues, with an educational fay from [employer]. Review of Systems Const All systems reviewed & are unremarkable except as noted in HPI and below Eyes Reports no additional complaints, Denies change in vision and Denies other visual disturbances Card Denies chest pain at rest, Denies chest pain with activity, Denies edema, Denies irregular heart rhythm, Denies claudication, Denies dyspnea, Denies dyspnea on exertion, Denies orthopnea, Denies paroxysmal nocturnal dyspnea and Denies slow heart rate Resp Denies cough, Denies dyspnea and Denies dyspnea on exertion GI Denies abdominal pain, Denies change in bowel habits, Denies excessive flatus, Denies nausea and Denies vomiting Denies urinary incontinence, Denies urinary hesitancy and Denies urinary urgency Musc Denies abnormal gait, Denies atrophy, Denies deformity and Denies limited range of motion Skin/Breast Denies bleeding lesions, Denies changing lesions and Denies rash Neuro Denies abnormal gait and Denies lack of coordination Physical exam (Primary Care) Vital Signs: Last Vital Signs BP 136/80 11/21/22 13:35 BMI result Body Mass Index 32.4 Tobacco/Smoking Status: Tobacco use Status Tobacco use date assessed 06/20/22 11/21/22 13:29 Patient Tobacco Use Status Former Tobacco user 11/21/22 13:29 Tobacco use type Cigarette 11/21/22 13:29 e-Cigarette/Vaping Use Never Used 11/21/22 13:29 Thrive Assessment: Date of Thrive Assessment Date Thrive assessed 06/20/22 11/21/22 13:29 Const Orientation/consciousness: patient oriented x3 HENMT Head: Yes normal to inspection, Yes normocephalic and Yes atraumatic Ears: external ears normal Eyes General: appearance normal, both eyes and all related structures Eyelids: Yes eyelids normal Conjunctivae: conjunctivae normal Neck Neck: Yes normal visual inspection and Yes supple Resp Effort & Inspection: normal respiratory effort Auscultation: clear to auscultation bilaterally Cardio Jugular venous distension: no JVD Rate: regular rate Rhythm: regular rhythm Heart sounds: S1 normal heart sound present and S2 normal heart sound present GI Inspection: Yes normal to inspection Palpation (GI): Soft to palpation and nontender Auscultation: normal bowel sounds Skin General skin exam: no rashes or lesions noted Neuro General: patient oriented x3 and no focal motor deficits Extrem General: Yes full ROM Psych Appearance: grossly normal Assessment and Plan Assessment & Plan (1) Physical exam: Code(s): Z00.00 - Encounter for general adult medical examination without abnormal fin dings Plan: Repeat in a year (2) Mild recurrent major depression: Code(s): F33.0 - Major depressive disorder, recurrent, mild Plan: Continue escitalopram. Orders: Orders IRON PROFILE Today D50.0 - Iron deficiency anemia secondary to blood loss (chronic), D64.9 - Anemia, unspecified Vitamin D 25-OH Total Today E55.9 - Vitamin D deficiency, unspecified Complete Blood Count Auto Diff Today D50.0 - Iron deficiency anemia secondary to blood loss (chronic), D64.9 - Anemia, unspecified Comprehensive [place]. Panel Fast Today I10 - Essential (primary) hypertension Lipid Panel Today E78.5 - Hyperlipidemia, unspecified, I10 - Essential (primary) hypertension XR chest 1V Today R05.9 - Cough, unspecified Referrals Cologuard Test Z12.11 - Encounter for screening for malignant neoplasm of colon, Z12.12 - Encounter for screening for malignant neoplasm of rectum Dermatology Referral L98.9 - Disorder of the skin and subcutaneous tissue, unspecified Medications: New hydroquinone 4% 1 appl topical DAILY 30 days 28.4 grams 0RF doxycycline hyclate 100 mg PO BID 5 days 10 tabs 0RF Coding Level of Care Code Est Pt Prev Care 40-64y(87461) Diagnoses Physical exam Z00.00 Mild recurrent major depression F33.0 Time Spent (min) 34
[2022-11-21 13:35] VITALS: BP 136/80; BMI 32.4
== END 2022-11-21 14:16 | disposition home or self-care (01) ==
PROVIDERS: Visit Provider Internal Medicine
DX: Z00.00 Encounter for general adult medical examination without abnormal findings (principal); F33.0 Major depressive disorder, recurrent, mild
CPT/HCPCS: 99396

== ENCOUNTER 2025-03-11 14:42 | Outpatient (AMB) | payer OTHER, SELFPAY ==
--- NOTE | 2025-03-11 15:12 | MHC.PC.OV ---
Vital Signs 03/11/25 15:14 Height 5 ft 3 in Weight 166 lb 8 oz BMI 29.5 BP 116/70 Blood Pressure Location Lt brachial Position Sitting Pulse 60 Pulse Source Pulse Oximeter Temp 97.3 F Temp Source Temporal Artery Scan Pulse Oximetry (%) 100 Oxygen Delivery Method Room Air Intake Visit Reasons: High Blood pressure Intake Note: Patient is here to follow up on High blood pressure. Numberer And Wirer Required: No Mail Service Coordinator: Not Required per policy Accompanied by: Self / Same As Patient Allergies No Known Allergies Allergy (Verified 03/11/25 15:41) Medication List - Last Reconciled 03/11/25 by Alethea Kebede MD albuterol sulfate 90 mcg/actuation (ProAir HFA) 2 puffs inhalation Q6H PRN 30 days cholecalciferol (vitamin D3) 50 mcg PO DAILY 90 days clonazepam 0.5 mg PO DAILY PRN 30 days escitalopram oxalate 15 mg PO DAILY famotidine 20 mg PO DAILY 90 days ferrous sulfate 325 mg PO BID 90 days ibuprofen 800 mg PO Q8H PRN 30 days losartan 25 mg PO DAILY 90 days meloxicam 15 mg PO .qd 30 days methotrexate sodium 2.5 mg PO QWEEK pantoprazole 40 mg PO DAILY 90 days sumatriptan succinate 25 mg PO Q2-4H PRN 30 days zolpidem 10 mg PO BEDTIME PRN 30 days Tobacco use date assessed: 03/11/25 Dental Screening Dental Screen Date: 03/11/25 Did you have a dental visit in the last 12 months?: Yes Did you have a dental problem in the last 6 months where you did not have access to dental care?: No Was dental information given to patient?: Patient has dentist HPI HPI Comments History of Present Illness Details The patient is a 54 year old female presenting for medication refills and management of chronic conditions. She has a history of rheumatoid arthritis, for which she has used methotrexate and is being followed by rheumatology. She reports significant joint pain, particularly in her elbows, knees, shoulder blades, and cervical spine, which is exacerbated by cold weather. She reports having gone to the hospital on three occasions for weakness. A blood transfusion was previously recommended, but she declined. Psychiatrically, she notes a history of panic attacks, for which she has been to the hospital. She recently experienced increased anxiety and palpitations since arriving in her current location. She is currently taking three 5 mg escitalopram tablets daily, as the 5 mg and 10 mg doses were no longer effective for her. Her current medications list includes an inhaler, vitamin D, clonazepam, escitalopram, famotidine, iron, ibuprofen, losartan 25 mg, meloxicam, methotrexate, pantoprazole, sumatriptan, and zolpidem. She is also in need of a mammogram. [facility] Medical History (Updated 03/11/25 @ 21:11 by Alethea Kebede MD) Elbow pain Hypovitaminosis D Transaminitis Migraines Iron deficiency anemia due to chronic blood loss Bony sclerosis Metastasis Pulmonary nodules Thoracic spine pain Lumbar pain Osteoarthritis of left knee Left knee pain Chest wall pain Anemia Insomnia Anxiety GERD (gastroesophageal reflux disease) Essential hypertension Surgical History History of removal of cyst History of tubal ligation Family History Father Hypertension Mother Hypertension Brother Myocardial infarction Daughter Depression Scoliosis Family history of thyroid problem Social History Housing: Apartment Alcohol intake: former Patient Tobacco Use Status: Former Tobacco user Tobacco use type: Cigarette e-Cigarette/Vaping Use: Never Used Second Hand Smoke Exposure: Yes service: No Current occupational status: unemployed Cognitive needs: No Hearing needs: No Vision needs: Yes Questionnaire PHQ-9 Over the last 2 weeks, how often have you been bothered by any of the following problems? 1. Little interest or pleasure in doing things: more than half the days 2. Feeling down, depressed, or hopeless: several days 3. Trouble falling or staying asleep, or sleeping too much: nearly every day 4. Feeling tired or having little energy: nearly every day 5. Poor appetite or overeating: nearly every day 6. Feeling bad about yourself - or that you are a failure or have let yourself or your family down: not at all 7. Trouble concentrating on things, such as reading the newspaper or watching television: not at all 8. Moving or speaking so slowly that other people could have noticed. Or the opposite - being so fidgety or restless that you have been moving around a lot more than usual: several days 9. Thoughts that you would be better off or of hurting yourself in some way: not at all Total score: 13 Depression Screening Interpretation: Positive Depression Screening Follow-up: Existing condition, In treatment and Follow-up Visit Requested Depression Screening Done: Yes 10787 - PHQ-9 Billing: Yes Source: Developed by Drs. Dejuan Ruiz, Adri Martin, Emanuel Dawkins and colleagues, with an educational fay from [employer]. Thrive Questionnaire Date Thrive assessed: 03/11/25 I am a: Patient What is your living situation today?: I have a steady place to live Within the past 12 months, did the food you bought not last and you didn't have the money to get more?: I choose not to answer this question Within the past 12 months, did you worry whether your food would run out before you got money to buy more?: I choose not to answer this question Do you have trouble paying for medicines?: Yes Do you have trouble getting transportation to medical appointments?: No Do you have trouble paying your heating and electricity bill?: Yes Do you have trouble taking care of your child, family member or friend?: Yes Do you have trouble with day-to-day activities such as bathing, preparing meals, shopping, managing finances, etc.?: Yes Are you currently unemployed and looking for a job?: Yes Are you interested in more education?: I choose not to answer this question Please select the resources that you would like help with: Housing/Long Term, Food and Paying for medicine Currently or been in a relationship where the following occur: No concerns reported THRIVE Score: 1 AUDIT C Alcohol Use Questionnaire (AUDIT-C) 1. How often do you have a drink containing alcohol?: Never Total Score: 0 Score Reviewed/Action Taken: No CHACHA-7 AMB Questionnaire CHACHA-7 Date CHACHA - 7 assessed: 03/11/25 Feeling nervous, anxious, or on edge: 3 = Nearly every day Not being able to stop or control worryin = Nearly every day Worrying too much about different things: 3 = Nearly every day Trouble relaxin = Nearly every day Being so restless that it is hard to sit still: 3 = Nearly every day Becoming easily annoyed or irritable: 3 = Nearly every day Feeling afraid as if something awful might happen: 0 = Not at all Total CHACHA-7 score (0-4 normal; 5-9 mild; 10-14 moderate; 15-21 severe): 18 Source: Developed by Drs. Dejuan Ruiz, Adri Martin, Emanuel Dawkins and colleagues, with an educational fay from [employer]. CHACHA-7 Assessment Billing CHACHA-7 Assessment Tool: CHACHA-7 Assessment 41126 Review of Systems Const All systems reviewed & are unremarkable except as noted in HPI and below Card Denies chest pain at rest, Denies chest pain with activity, Denies edema, Denies irregular heart rhythm, Denies claudication, Denies dyspnea, Denies dyspnea on exertion, Denies orthopnea, Denies paroxysmal nocturnal dyspnea and Denies slow heart rate Resp Denies cough, Denies dyspnea and Denies dyspnea on exertion GI Denies abdominal pain, Denies change in bowel habits, Denies excessive flatus, Denies nausea and Denies vomiting Physical exam (Primary Care) Vital Signs: Last Vital Signs Temp 97.3 F 03/11/25 15:14 Pulse 60 03/11/25 15:14 BP 116/70 03/11/25 15:14 Pulse Ox 100 03/11/25 15:14 Oxygen Delivery Method Room Air 03/11/25 15:14 BMI result Body Mass Index 29.5 Tobacco/Smoking Status: Tobacco use Status Tobacco use date assessed 03/11/25 03/11/25 15:15 Patient Tobacco Use Status Former Tobacco user 03/11/25 15:13 Tobacco use type Cigarette 03/11/25 15:13 e-Cigarette/Vaping Use Never Used 03/11/25 15:13 PHQ-9: PHQ-9 Score PHQ-9: Total score 13 03/11/25 15:50 Depression Screening Interpretation: Positive Depression Screening Follow-up: Existing condition, In treatment and Follow-up Visit Requested Thrive Assessment: Date of Thrive Assessment Date Thrive assessed 03/11/25 03/11/25 15:13 Currently or been in a relationship where the following occur: No concerns reported Resp Effort & Inspection: normal respiratory effort Auscultation: clear to auscultation bilaterally Cardio Jugular venous distension: no JVD Rate: regular rate Rhythm: regular rhythm Heart sounds: S1 normal heart sound present and S2 normal heart sound present Extrem General: Yes full ROM Coding Level of Care Code Complex visit Add On G2211 Diagnoses Mild recurrent major depression F33.0 Essential hypertension I10 Rheumatoid arthritis M06.9 Insomnia G47.00 Additional Codes CHACHA-7 Assessment Billing - CHACHA-7 Assessment Tool: CHACHA-7 Assessment 01272 ([id number]) PHQ-9 - 38145 - PHQ-9 Billing: Yes ([id number]) Time Spent (min) 22 Assessment & Plan Assessment & Plan (1) Mild recurrent major depression: Code(s): F33.0 - Major depressive disorder, recurrent, mild Category: Medical (2) Essential hypertension: Code(s): I10 - Essential (primary) hypertension Category: Medical (3) Rheumatoid arthritis: Code(s): M06.9 - Rheumatoid arthritis, unspecified Category: Medical (4) Insomnia: Code(s): G47.00 - Insomnia, unspecified Category: Medical Plan Plan 1. Rheumatoid Arthritis The patient will be referred to a dewaterer operator for ongoing management of her rheumatoid arthritis. 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 will not be refilled at this time; it will be managed by the specialist. Other medications, including meloxicam and ibuprofen for pain, will be refilled. 2. Anxiety And Panic Disorder The patient's current dose of escitalopram 15 mg daily (taken as three 5 mg tablets) is providing some benefit. To simplify the regimen, the prescription will be changed to escitalopram 20 mg once daily. The new prescription will be sent to her pharmacy. Refills for clonazepam will also be provided. 3. Hypertension Continue losartan. Keep blood pressure less than 130/80. 4. Anemia Laboratory studies, including a hemoglobin check, have been ordered to evaluate for anemia. The patient is advised to complete these labs next week. A prescription for iron will be provided regardless of the lab results. 5. Preventative Care The patient needs a mammogram and states she has not received a call for her appointment yet. Orders: Orders IRON PROFILE Today D64.9 - Anemia, unspecified MM tomosynthesis screening BI Today Z12.31 - Encounter for screening mammogram for malignant neoplasm of breast Comprehensive [place]. Panel Fast Today I10 - Essential (primary) hypertension Complete Blood Count Auto Diff Today D64.9 - Anemia, unspecified Lipid Panel Today E78.5 - Hyperlipidemia, unspecified Vitamin D 25-OH Total Today E55.9 - Vitamin D deficiency, unspecified Referrals Rheumatology Referral M06.9 - Rheumatoid arthritis, unspecified Medications: New escitalopram oxalate 20 mg PO DAILY 90 tabs 1RF 90 days Refilled ibuprofen 800 mg PO Q8H PRN 90 tabs 0RF pain 30 days clonazepam 0.5 mg PO DAILY PRN 30 tabs 0RF anxiety 30 days meloxicam 15 mg PO .qd 30 tabs 0RF 30 days sumatriptan succinate do not exceed 8 doses per 24 hrs 25 mg PO Q2-4H PRN 9 tabs 3RF migraine headache 30 days zolpidem 10 mg PO BEDTIME PRN 30 tabs 0RF sleep 30 days albuterol sulfate 90 mcg/actuation (ProAir HFA) 2 puffs inhalation Q6H PRN 6.7 grams 0RF shortness of breath or wheezing 30 days cholecalciferol (vitamin D3) 50 mcg PO DAILY 90 caps 1RF 90 days famotidine 20 mg PO DAILY 90 tabs 1RF 90 days ferrous sulfate 325 mg PO BID 180 tabs 1RF 90 days losartan 25 mg PO DAILY 90 tabs 3RF 90 days pantoprazole 40 mg PO DAILY 90 tabs 3RF 90 days
[2025-03-11 15:14] VITALS: BP 116/70; PULSE 60; TEMP 36.3; O2SAT 100; BMI 29.5
--- OUTSIDE RECORDS SUMMARY | 2025-03-11 20:42 | XMS_ITS | Clinical Summary ---
Author Organization [facility] Address [address] [facility] [address] [place] [phone] Phone Care Team Providers Care Oil And Gas Specialist Name Role Phone Mejia Alicea MD Primary Care Provid er Allergies No known active allergies Medications clonazePAM (KLONOPIN) 0.5 MG tablet Take 0.5 mg by mouth as needed. Active escitalopram oxalate (LEXAPRO) 5 MG tablet Take 5 mg by mouth daily. Active losartan (COZAAR) 25 MG tablet Take 25 mg by mouth daily. Active pantoprazole (PROTONIX) 40 MG tablet Take 40 mg by mouth daily. Active SUMAtriptan (IMITREX) 25 MG tablet Take 25 mg by mouth as needed. Not to exceed 200 mg/day Active zolpidem (AMBIEN) 10 mg tablet Take 10 mg by mouth nightly at bedtime as needed. Active VITAMIN D3 50 mcg (2,000 unit) capsule Take by mouth daily. 2 Active PROAIR HFA 90 mcg/actuation inhaler 2 PUFF INHALED EVERY 6 HOURS NEEDED FOR SHORTNESS OF BREATH OR WHEEZING FOR 30 DAYS 2 Active ferrous sulfate 325 mg (65 mg [place] iron) tabletIndication s:Iron deficiency,Iron deficiency anemia, unspecified iron deficiency anemia type Take 1 tablet (325 mg total) by mouth 2 (two) times a day with meals. 60 tablet 2 3 Active folic acid (FOLVITE) 1 MG tabletIndication s: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, fci, current use Take 1 tablet (1 mg total) by mouth daily. 180 tablet 3 3 Active Additional Information Patient taking differently:1 mg Oral Daily,Indications: has not taken in 3 weeks, Reported on 03/10/2023 famotidine (PEPCID) 20 MG tablet Take 1 tablet by mouth every morning. 3 Active hydroquinone 4 % cream Apply topically 2 (two) times a day. For the face 3 Active methotrexate 2.5 MG Oral tabletIndication s:Rheumatoid arthritis, seropositive,Ane latia due to other cause, not classified TAKE 8 TABLETS BY MOUTH ONCE WEEKLY 32 tablet 3 3 Active diclofenac sodium (VOLTAREN) 1 % GelIndications:A rthritis of elbow Apply 2 g topically 4 (four) times a day. 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 Formal PT may provide additional benefit. If symptoms progress may need to consider local steroid injection. Redness of right eye 11/04/2022 Assessment & Plan (11/05/2022 5:18 PM EDT): Due to ongoing redness for over a week I requested ophthalmologic checkup to make sure that it is not secondary to scleritis versus episcleritis that may be related to rheumatoid arthritis involvement of her eye and may require adjustment in DMARD therapy versus additional intraocular medications Other specified anemias 07/25/2022 Assessment & Plan (03/10/2023 9:37 AM EST): Due to ongoing microcytic anemia I have encouraged her to take supplemental iron along with vitamin C and continue disease modifying antirheumatic therapy that should improve anemia of chronic disease for her. Assessment & Plan (10/07/2022 11:49 AM EDT): Due to ongoing microcytic anemia I have encouraged her to take supplemental iron along with vitamin C and continue disease modifying antirheumatic therapy that should improve anemia of chronic disease for her. Assessment & Plan (08/21/2022 4:58 PM EDT): Due to ongoing microcytic anemia I have encouraged her to take supplemental iron along with vitamin C and continue disease modifying antirheumatic therapy that should improve anemia of chronic disease for her. 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, fci, current use 07/25/2022 Assessment & Plan (03/10/2023 9:37 AM EST): Take exactly as prescribed once a week and continue daily folic acid. Hold methotrexate whenever running fever, feeling sick or taking antibiotics. Complete entire course of antibiotics and wait at least 48 hours after the last dose to make sure that infection does not recur before restarting methotrexate on its usual weekly dosing schedule. Monitor for any signs of mucosal ulcers, upset stomach, skin rashes, cough or breathing difficulty etc. Return for monitoring labs at least every 6-8 weeks-standing orders in epic. Refrain from taking nonsteroidals on the same day as weekly methotrexate dose if possible or at least spread the dose 8-12 hours apart. Use double contraception while on methotrexate and sexually active. Make sure to inform any new BEATRICE DUMAS NP about chronic immunosuppression with methotrexate particularly in emergency situations. Assessment & Plan (11/04/2022 9:17 AM EDT): Take exactly as prescribed once a week and continue daily folic acid. Hold methotrexate whenever running fever, feeling sick or taking antibiotics. Complete entire course of antibiotics and wait at least 48 hours after the last dose to make sure that infection does not recur before restarting methotrexate on its usual weekly dosing schedule. Monitor for any signs of mucosal ulcers, upset stomach, skin rashes, cough or breathing difficulty etc. Return for monitoring labs at least every 6-8 weeks-standing orders in epic. Refrain from taking nonsteroidals on the same day as weekly methotrexate dose if possible or at least spread the dose 8-12 hours apart. Use double contraception while on methotrexate and sexually active. Make sure to inform any new BEATRICE DUMAS NP about chronic immunosuppression with methotrexate particularly in emergency situations. Assessment & Plan (10/07/2022 11:53 AM EDT): Take exactly as prescribed once a week and continue daily folic acid. Hold methotrexate whenever running fever, feeling sick or taking antibiotics. Complete entire course of antibiotics and wait at least 48 hours after the last dose to make sure that infection does not recur before restarting methotrexate on its usual weekly dosing schedule. Monitor for any signs of mucosal ulcers, upset stomach, skin rashes, cough or breathing difficulty etc. Return for monitoring labs at least every 6-8 weeks-standing orders in epic. Refrain from taking nonsteroidals on the same day as weekly methotrexate dose if possible or at least spread the dose 8-12 hours apart. Use double contraception while on methotrexate and sexually active. Make sure to inform any new BEATRICE DUMAS TRUCK DRIVER INSTRUCTOR about chronic immunosuppression with methotrexate particularly in emergency situations. Assessment & Plan (08/21/2022 5:11 PM EDT): Take exactly as prescribed once a week and continue daily folic acid. Hold methotrexate whenever running fever, feeling sick or taking antibiotics. Complete entire course of antibiotics and wait at least 48 hours after the last dose to make sure that infection does not recur before restarting methotrexate on its usual weekly dosing schedule. Monitor for any signs of mucosal ulcers, upset stomach, skin rashes, cough or breathing difficulty etc. Return for monitoring labs at least every 6-8 weeks-standing orders in epic. Refrain from taking nonsteroidals on the same day as weekly methotrexate dose if possible or at least spread the dose 8-12 hours apart. Make sure to inform any new BEATRICE DUMAS [employer] DRIVER INSTRUCTOR about chronic immunosuppression with methotrexate particularly in emergency situations. Long-term use of leflunomide therapy 07/25/2022 Assessment & Plan (03/10/2023 9:37 AM EST): Hold Arava whenever sick, running fever or taking antibiotics. Remain alcohol free while taking Arava and use double contraception while taking Arava and sexually active. Return for regular every 6-8 weeks monitoring labs-standing orders in epic. Assessment & Plan (11/04/2022 9:17 AM EDT): Hold Arava whenever sick, running fever or taking antibiotics. Remain alcohol free while taking Arava and use double contraception while taking Arava and sexually active. Return for regular every 6-8 weeks monitoring labs-standing orders in epic. Assessment & Plan (09/16/2022 4:01 PM EDT): Hold Arava whenever sick, running fever or taking antibiotics. Remain alcohol free while taking Arava and use double contraception while taking Arava and sexually active. Return for regular every 6-8 weeks monitoring labs-standing orders in epic. Assessment & Plan (08/21/2022 5:12 PM EDT): Hold Arava whenever sick, running fever or taking antibiotics. Remain alcohol free while taking Arava and use double contraception while taking Arava and sexually active. Return for regular every 6-8 weeks monitoring labs-standing orders in epic. Other insomnia 07/25/2022 Assessment & Plan (11/05/2022 5:16 PM EDT): I have reviewed with her that chronic use of Ambien for longer than a couple yrs has been documented to increased risk of premature dementia. I have encouraged her to focus on nonpharmacologic measures to help with her sleep if possible such as listening to relaxation tapes nightly and every time she would wake up x at least 4 months and follow principles of sleep hygiene. If above strategies are not successful and she wakes up frequently gasping for air versus has difficulty falling asleep may need to consider formal sleep study. Assessment & Plan (10/07/2022 11:53 AM EDT): I have reviewed with her that chronic use of Ambien for longer than a year has been documented to increase risk of premature dementia. I have encouraged her to focus on nonpharmacologic measures to help with her sleep if possible such as listening to relaxation tapes nightly and every time she would wake up x at least 4 months and follow principles of sleep hygiene. If above strategies are not successful and she wakes up frequently gasping for air versus has difficulty falling asleep may need to consider formal sleep study. Assessment & Plan (08/21/2022 5:08 PM EDT): I have reviewed with her that chronic use of Ambien for longer than a year has been documented to increased risk of premature dementia. I have encouraged her to focus on nonpharmacologic measures to help with her sleep if possible such as listening to relaxation tapes nightly and every time she would wake up x at least 4 months and follow principles of sleep hygiene. If above strategies are not successful and she wakes up frequently gasping for air versus has difficulty falling asleep may need to consider formal sleep study. Class 1 obesity due to exces s calories with serious comorbidity and body mass index (BMI) of 32.0 to 32.9 in adult 07/25/2022 Assessment & Plan (03/10/2023 9:39 AM EST): C ONGRATS ON 8 LBS WEIGHT LOSS Portion control. Limit concentrated sugars, saturated fats and calories in the diet. Keep well-hydrated. If unable to achieve expected goal consider formal dietary/nutritional support. Assessment & Plan (11/04/2022 9:14 AM EDT): Continue diligent portion control. Limit concentrated sugars, saturated fats and calories in the diet. Keep well-hydrated. If unable to achieve expected goal consider formal dietary/nutritional support. Assessment & Plan (10/07/2022 11:49 AM EDT): Continue diligent portion control. Limit concentrated sugars, saturated fats and calories in the diet. Keep well-hydrated. If unable to achieve expected goal consider formal dietary/nutritional support. Assessment & Plan (08/21/2022 4:58 PM EDT): Portion control. Limit concentrated sugars, saturated fats and calories in the diet. Keep well-hydrated. If unable to achieve expected goal consider formal dietary/nutritional support. NSAID long-term use 07/25/2022 Assessment & Plan (03/10/2023 9:37 AM EST): Take the lowest dose, with least frequency, for shortest time. Remember to take it always with food. Favor topical over oral preparations. Assessment & Plan (11/04/2022 9:17 AM EDT): Take the lowest dose, with least frequency, for shortest time. Remember to take it always with food. Favor topical over oral preparations. Assessment & Plan (10/07/2022 11:54 AM EDT): I have educated her not to take meloxicam and ibuprofen at the same time. Preferably stay with one of the medications rather than keep changing/avoid mixing. Take the lowest dose, with least frequency, for shortest time. Remember to take it always with food. Favor topical over oral preparations. Assessment & Plan (08/21/2022 5:12 PM EDT): Take the lowest dose, with least frequency, for shortest time. Remember to take it always with food. Favor topical over oral preparations. Rheumatoid arthritis, seropositive 12/01/2021 Overview (12/01/2021): Reports multiple joint pain for several years Lab workup with elevated ESR and CRP and pos CCP Ab consistent with RA She would benefit from DMARD to prevent joint destruction and disease progression Most appropriate would be MTX Will add MTX , titrate to 15 mg weekly and folic acid 1 mg daily Risks and benfits were reviewed with sheet metal fabricator's assistance Pt understands she needs additional labs and Chest XR before starting MTX We discussed and reviewed the risk and benefits of 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 (MTX) . The potential side effects/adverse reactions of MTX include but are not limited to rash, GI distress, teratogenicity, immunosuppression/infections, hepatotoxicity, pulmonary toxicity, and bone marrow toxicity. The patient knows to report any signs of infection. The patient knows to take the medication only once weekly, to avoid alcoholic beverages, and to have routine blood testing for liver, bone marrow toxicity and renal function. . We discussed that the full effect of methotrexate may not be appreciated until the patient has been on the medication at a full dose for about 3-4 months. The patient expressed understanding and was agreeable to starting the medication. - Start MTX 10mg po 1st week, increase to 12.5 mg po 2nd week and 15 mg po weekly 3rd week to be continued - Start folic acid 1mg po daily- - Labs now including: CBC, CMP, ESR, CRP, Hepatitis serologies, Quantiferon TB gold - Will obtain a baseline CXR - Repeat monitoring labs every 6 weeks on MTX - Follow-up in 3 month Multiple tender joints in hands Assessment & Plan (03/12/2023 4:32 PM EST): Reported multiple joint pain for several years Lab workup with elevated ESR and CRP and pos CCP Ab consistent with RA. New set of labs requested today and prior to next visit in 2 months-standing orders [facility].. She is tolerating daily Arava 20 mg and is asked to restart her weekly methotrexate every Monday if possible at 20 mg= 8 tablets weekly. I have explained to her that ibuprofen can be taken on the 6 days that she is not taking weekly dose of methotrexate rather than skip methotrexate and take only ibuprofen as she understood. Ibuprofen does not prevent the disease progression as the methotrexate in combination with Arava (leflunomide) does. She is advised to use double contraception while on methotrexate and sexually active. We discussed that the full effect of methotrexate may not be appreciated until the patient has been on the medication at a full dose for about 3-4 months. The patient expressed understanding and agreed to carefully to re-start the medication. Carefully continue weekly oral methotrexate every Monday breakfast and daily Arava (leflunomide) -Increase folic acid to 2 mg every daily other days of the week except for Monday -If not better consider leucovorin - Repeat monitoring labs every 2 mths while taking MTX & Arava-standing orders in [facility]. -I wrote her instructions on a separate sheet while having sheet metal fabricator on the line and she expressed understanding. -If getting influenza and COVID-19 vaccination asked to hold methotrexate for 2 weekly doses afterwards to optimize benefit. I encouraged her to call with any questions or problems. - Follow-up in 2 mths, call if problems in the interim. Assessment & Plan (11/05/2022 5:15 PM EDT): Reports multiple joint pain for several years Lab workup with elevated ESR and CRP and pos CCP Ab consistent with RA. She is tolerating daily Arava and previously found weekly methotrexate helpful until weekly dose reached 15 mg every Monday that caused upset stomach. Risks and benfits were reviewed with sheet metal fabricator's assistance again after she had been previously explained in late November 2021 by my departed colleague-Caitlin Santiago PA-C. The potential side effects/adverse reactions of MTX include but are not limited to rash, GI distress, teratogenicity, immunosuppression/infections, hepatotoxicity, pulmonary toxicity, and bone marrow toxicity. The patient knows to report any signs of infection. The patient knows to take the medication only once weekly, to avoid alcoholic beverages, and to have routine blood testing for liver, bone marrow toxicity and renal function. She is advised to use double contraception while on methotrexate and sexually active. We discussed that the full effect of methotrexate may not be appreciated until the patient has been on the medication at a full dose for about 3-4 months. The patient expressed understanding and agreed to carefully to re-start the medication. Carefully continue weekly oral methotrexate every Monday breakfast and daily Arava (leflunomide) -Increase folic acid to 2 mg every daily other days of the week except for Monday -If not better consider leucovorin - Repeat monitoring labs every 3 mths while taking MTX & Arava-standing orders in [facility] - Follow-up in 3 mths, call if problems in the interim. Assessment & Plan (10/07/2022 11:52 AM EDT): Reports multiple joint pain for several years Lab workup with elevated ESR and CRP and pos CCP Ab consistent with RA. She is tolerating daily Arava and previously found weekly methotrexate helpful until weekly dose reached 15 mg every Monday that caused upset stomach. Risks and benfits were reviewed with sheet metal fabricator's assistance again after she had been previously explained in late November 2021 by my departed colleague-Caitlin Santiago PA-C. The potential side effects/adverse reactions of MTX include but are not limited to rash, GI distress, teratogenicity, immunosuppression/infections, hepatotoxicity, pulmonary toxicity, and bone marrow toxicity. The patient knows to report any signs of infection. The patient knows to take the medication only once weekly, to avoid alcoholic beverages, and to have routine blood testing for liver, bone marrow toxicity and renal function. She is advised to use double contraception while on methotrexate and sexually active. We discussed that the full effect of methotrexate may not be appreciated until the patient has been on the medication at a full dose for about 3-4 months. The patient expressed understanding and agreed to carefully to re-start the medication. She was able to restart carefully methotrexate up to 15 mg weekly every Monday and reports Lip sore -Increase folic acid to 2 mg every Monday and Monday and continue folic acid 1mg po daily other days of the week except for Monday -If not better consider leucovorin - Repeat monitoring labs every 6 weeks on MTX-standing orders in [facility] - Follow-up in 6 wks, call if problems in the interim. Assessment & Plan (08/21/2022 5:06 PM EDT): Reports multiple joint pain for several years Lab workup with elevated ESR and CRP and pos CCP Ab consistent with RA. She is tolerating daily Arava and previously found weekly methotrexate helpful until weekly dose reached 15 mg every Monday that caused upset stomach. Risks and benfits were reviewed with sheet metal fabricator's assistance again after she had been previously explained in late November 2021 by my departed colleague-Caitlin Santiago PA-C. The potential side effects/adverse reactions of MTX include but are not limited to rash, GI distress, teratogenicity, immunosuppression/infections, hepatotoxicity, pulmonary toxicity, and bone marrow toxicity. The patient knows to report any signs of infection. The patient knows to take the medication only once weekly, to avoid alcoholic beverages, and to have routine blood testing for liver, bone marrow toxicity and renal function. She is advised to use double contraception while on methotrexate and sexually active. We discussed that the full effect of methotrexate may not be appreciated until the patient has been on the medication at a full dose for about 3-4 months. The patient expressed understanding and agreed to carefully to re-start the medication. - Re-start MTX 10mg po 1st week, increase to 12.5 mg po 2nd week and 15 mg po weekly 3rd week to be continued or call if problems in the interim -Continue folic acid 1mg po daily - Repeat monitoring labs every 6 weeks on MTX-standing orders in [facility] - Follow-up in 6 wks Assessment & Plan (12/01/2021 8:09 PM EDT): Reports multiple joint pain for several years Lab workup with elevated ESR and CRP and pos CCP Ab consistent with RA She would benefit from DMARD to prevent joint destruction and disease progression Most appropriate would be MTX Will add MTX , titrate to 15 mg weekly and folic acid 1 mg daily Risks and benfits were reviewed with sheet metal fabricator's assistance Pt understands she needs additional labs and Chest XR before starting MTX We discussed and reviewed the risk and benefits of 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 (MTX) . The potential side effects/adverse reactions of MTX include but are not limited to rash, GI distress, teratogenicity, immunosuppression/infections, hepatotoxicity, pulmonary toxicity, and bone marrow toxicity. The patient knows to report any signs of infection. The patient knows to take the medication only once weekly, to avoid alcoholic beverages, and to have routine blood testing for liver, bone marrow toxicity and renal function. . We discussed that the full effect of methotrexate may not be appreciated until the patient has been on the medication at a full dose for about 3-4 months. The patient expressed understanding and was agreeable to starting the medication. - Start MTX 10mg po 1st week, increase to 12.5 mg po 2nd week and 15 mg po weekly 3rd week to be continued - Start folic acid 1mg po daily- - Labs now including: CBC, CMP, ESR, CRP, Hepatitis serologies, Quantiferon TB gold - Will obtain a baseline CXR - Repeat monitoring labs every 6 weeks on MTX - Follow-up in 3 month Multiple tender joints in hands Pain in joints 11/03/2021 Overview (11/03/2021): Reports multiple joint pain for several years Lab workup with elevated ESR and CRP Multiple tender joints in hands Will check additional labs today and XR of hands to look for any underlying inflammatory arthritis or auto-immune illness May continue Mobic for now Assessment & Plan (11/03/2021 6:05 PM EDT): Reports multiple joint pain for several years Lab workup with elevated ESR and CRP Multiple tender joints in hands Will check additional labs today and XR of hands to look for any underlying inflammatory arthritis or auto-immune illness May continue Mobic for now Encounters Date Type Department Care Team Description 01/01/2025 Telephone [facility] Rheumatology [address] [place] [id number] Josefina Ramirez MD Appointment from Last 3 Months Family History Medical History Relation Comments Heart attack Brother Depression Daughter Scoliosis Daughter Hypertension Father Hypertension Mother Relation Status Comments Brother Daughter Father Mother Social History Tobacco Use Types Packs/Day Years Used Date Smoking Tobacco: Never Smokeless Tobacco: Never Tobacco Cessation:Counseling Given: Not Answered Education Answer Date Recorded Are you interested in more education? Not on vasu e 07/30/2022 Are you concerned about learning? Not on file 07/30/2022 No 07/30/2022 No 07/30/2022 Digital Access Answer Date Recorded No 08/27/2022 No 08/27/2022 Reliable internet access at home? Not on file 08/27/2022 Device with a working camera? Not on file Comments Unknown Sex and Gender Information Value Date Recorded Sex Assigned at Not on file Legal Sex Female 12:40 PM EDT Gender Identity Not on file Sexual Orientation Not on file Last Filed Vital Signs Vital Sign Reading Time Taken Comments Blood Pressure 108/72 03/10/2023 8:49 AM EST Pulse 79 03/10/2023 8:49 AM EST Temperature - - Respiratory Rate 16 11/01/2021 3:53 PM EDT Oxygen Saturation 99% 03/10/2023 8:49 AM EST Inhaled Oxygen Concentration - - Weight 79.8 kg (176 lb) 03/10/2023 8:49 AM EST Height 160 cm (5' 3 ) 03/10/2023 8:49 AM EST Body Mass Index 31.18 03/10/2023 8:49 AM EST Plan of Treatment Health Maintenance Due Date Last Done Comments Adult Td,Tdap Booster 1972 LIPID PANEL 1972 DEPRESSION SCREENING 1984 HIV ONE-TIME SCREENING (18-65 YEARS) 1990 PNEUMOCOCCAL VACCINES (50+ years) (1 of 2 - PCV) 11/30/1991 ZOSTER VACCINES (1 of 2) 11/30/1991 PAP SMEAR 1993 MAMMOGRAM 2012 COLOGUARD 2017 COLONOSCOPY 2017 COLORECTAL CANCER SCREENING 2017 FIT TEST 2017 FOBT 2017 SIGMOIDOSCOPY 2017 VIRTUAL COLONOSCOPY 2017 COVID-19 VACCINE (2 - Augusto risk series) 08/10/2020 07/13/2020 RSV VACCINE (1 - Risk 50-74 years 1-dose series) 2022 CREATININE LEVEL 03/10/2024 03/10/2023, 07/2022, 08/05/2022, Additional history exists POTASSIUM LEVEL 03/10/2024 03/10/2023, 08/0 07/2022, 08/05/2022, Additional history exists INFLUENZA VACCINE (#1) 2024 SCREENING FOR DIABETES 03/10/2026 03/10/2023 HEPATITIS C SCREENING Completed 12/13/2021 , 12/13/2021, 12/13/2021 SMOKING STATUS SCREENING (Once After 26 Yrs) Completed 03/10/2023 HEPATITIS A VACCINES Aged Out No long er eligible based on patient's age to complete this topic HIB VACCINES Aged Out No longer eligi ble based on patient's age to complete this topic MENINGOCOCCAL VACCINES (ACWY) Aged Out No longer eligible based on patient's age to complete this topic MENINGOCOCCAL VACCINES (B) Aged Out N o longer eligible based on patient's age to complete this topic Medical Devices Not on file Procedures Procedure Name Priority Date/Time Associated Diagnosis Comments COMPREHENSIVE METABOLIC PANEL (CMP) Routine 03/10/2023 9:55 AM EST Rheumatoid arthritis, seropositive Anemia due to other cause, not classified 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, 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, 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5 mg/dL [facility] GLUCOSE 107(H) 70 - 99 mg/dL [facility] ALBUMIN 4.1 3.9 - 4.8 g/dL [facility] TOTAL PROTEIN 7.8 6.5 - 8.0 g/dL [facility] CALCIUM 9.6 8.4 - 10.3 mg/dL [facility] ALKALINE PHOSPHATASE 92 39 - 117 U/L [facility] TOTAL BILIRUBIN 0.4 0.0 - 1.2 mg/dL [facility] AST 31 0 - 37 U/L [facility] ALT 26 0 - 40 U/L [facility] GLOBULIN 3.7 1 - 4.8 g/dL [facility] EGFR 105 >59 mL/min/1.7 3m2 [facility] Comment:Estimated glomerular filtration rate calculated using the CKD-EPI refit equation. ANION GAP 16 10 - 20 mmol/L [facility] Blood 03/10/2023 9:55 AM EST 03/10/2023 10:02 AM EST us Josefina Ramirez MD LAB BLOOD BKR ORDERABLES Final Result [address] [id number] * Hepatitis C antibody, qualitative (12/13/2021 9:40 AM EDT) HCV NON-REACTIV E NON-REACTI VE [facility] Blood 12/13/2021 9:40 AM EDT 12/13/2021 9:44 AM EDT us Caitlin BARRON LAB BLOOD BKR ORDERABLES Final Result [address] [id number] from Last 3 Months or Most Recently Relevant to Health Maintenance Insurance ACO ACO ACO ACO ACO ACO ACO ACO Care Teams [employer] Specialist Relationship Specialty Start Date End Date Mejia Alicea MD [address] [place] [id number] PCP - General Internal Medicine 12/17/20 Additional Source Comments The information contained in this document represents components of the legal health record. It is not the complete legal health record.[facility]
== END 2025-03-11 15:57 | disposition home or self-care (01) ==
LOC: HO.HMCH 14:43
PROVIDERS: PCP Internal Medicine; Visit Provider Internal Medicine
DX: F33.0 Major depressive disorder, recurrent, mild (principal); I10 Essential (primary) hypertension; M06.9 Rheumatoid arthritis, unspecified; G47.00 Insomnia, unspecified

== ENCOUNTER → 2025-03-11 14:42 | Outpatient (BNVA) | payer OTHER, SELFPAY | PROVIDERS: PCP Internal Medicine; Visit Provider Internal Medicine | DX: F33.0 Major depressive disorder, recurrent, mild (principal); I10 Essential (primary) hypertension; M06.9 Rheumatoid arthritis, unspecified; F41.0 Panic disorder [episodic paroxysmal anxiety]; G47.00 Insomnia, unspecified; Z79.899 Other long term (current) drug therapy | CPT/HCPCS: 96127; 99212 ==